=== PATIENT | female | born 1935 | race Caucasian/White ===

== ENCOUNTER 2016-11-15 10:22 | Day surgery (SDC) | payer MEDICARE, OTHER ==
[2016-11-14 09:17] VITALS: BMI 26.3
[~2016-11-15 10:22] MED LIST: LACTATED RINGERS 1,000 ML IV SCH; MIDAZOLAM 2 MG/2 ML VIAL IV PRN
[2016-11-15] MEDS: ONDANSETRON 4 MG/2 ML VIAL IVP ONE ×2 (11:09→16:07)
[2016-11-15] MEDS ORDERED: LIDOCAINE 1% 20 ML VIAL (10MG/ML) FOR IV START INTRADERMA ONE (11:09)
[2016-11-15] MEDS ORDERED: ceFAZolin 1,000 MG/50 ML BAG (PMX) ONE (12:39)
[2016-11-15] MEDS ORDERED: SODIUM CHLORIDE 0.9% 100 ML BAG ONE (12:39)
[2016-11-15] MEDS ORDERED: PROPOFOL 10 MG/ML 20 ML VIAL IV ONE (12:39)
[2016-11-15] MEDS ORDERED: ceFAZolin 1,000 MG VIAL ONE (12:39)
[2016-11-15] MEDS ORDERED: fentaNYL (PF) 50 MCG/ML 2 ML AMP ONE (12:39)
[2016-11-15] MEDS ORDERED: ceFAZolin 1,000 MG in SODIUM CHLORIDE 0.9% 1,000 ML IRRIGATION ONE ×4 (12:43)
[2016-11-15] MEDS: ceFAZolin 2 GM in SODIUM CHLORIDE 0.9% 100 ML IVPB ONE ×2 (12:43→12:54)
[2016-11-15] MEDS: HYDROmorphone 1 MG/ML 1 ML SYRINGE IVP PRN ×4 (13:40→14:15)
[2016-11-15 13:45] VITALS: TEMP 97.8
--- NOTE | 2016-11-15 13:52 | P.OP ---
Date of Procedure: 11/15/16 Procedure(s) Performed: right wrist closed reduction and perc pinning (3 pins) R Distal radius splinted in 15 deg flexion at wrist no assist PREOPERATIVE DIAGNOSES: 1. Right distal radius fracture 2. Severe osteoporosis POSTOPERATIVE DIAGNOSES: 1. Right distal radius fracture 2. Severe osteoporosis PROCEDURES PERFORMED: 1. Right distal radius fracture closed reduction and percutaneous pinning 2. Short arm splint placement ANESTHESIA: pattern fitter: None COMPLICATIONS: None ESTIMATED BLOOD LOSS: Less than 5 mL. DISPOSITION: To post-anesthesia care unit INDICATIONS: Mrs. Lu is an 81-year-old lady who fell a couple weeks ago and sustained a displaced fracture of her distal radius. The fracture was initially reduced with good alignment, however has shifted out of place over the past week. We have discussed leaving this fracture alone and letting it heal with residual deformity which would probably be acceptable in terms of function, but considering the amount of loss of radial inclination I feel that closed reduction percutaneous pinning would the optimal treatment for this situation. She wishes to proceed with surgery. I discussed the steps of the surgery as well as potential risks and complications as being inclusive of, but not limited to: Bleeding, infection, scarring, discomfort, blood vessel and/or nerve damage, need for further surgery, deformity, stiffness, tendon injury, pin site infection, osteomyelitis, loss of limb or life, and other risks. She is aware these risks and wishes to proceed with surgery. The consent form has been signed. PROCEDURE: After appropriate consent was obtained, the patient was taken to the operating room placed in the supine position. Anesthesia was initiated, and after confirmation of adequate anesthesia, the patient was carefully positioned. Care was taken to make sure that all pressure points were adequately padded. Prepping and draping were completed in the usual aseptic fashion using ChloraPrep. Timeout was called, confirming patient identity, side , procedure, and administration of antibiotics. The patient's fracture was reduced while being held by an technical assistant. This was performed under C-arm guidance. Once an acceptable reduction had been obtained , 0.062 inch K wires were deployed from the distal fragment into the proximal fragment under C-arm guidance. 3 such pins were used: one in the radial styloid , one in the sigmoid notch fragment, and the last in the central dorsal rim of the distal radius. All 3 pins had far cortical purchase. Final C-arm images were taken and saved, showing satisfactory realignment of the distal radius fracture. Pins were bent and trimmed. Pin protectors were applied. A nonadherent dressing was applied over the pin sites and a well-padded well molded volar splint with the wrist in approximately 15 of flexion was applied. Patient tolerated the procedure well and taken to recovery room in stable condition. Counts were correct.
--- NOTE | 2016-11-15 13:54 | FL ---
EXAMINATION TYPE: FL guidance operating room DATE OF EXAM: 11/15/2016 1:36 PM HISTORY: Flouroscopy time 54 seconds of fluoroscopy provided. IMPRESSION: 1. Fluoroscopy time.
[2016-11-15] MEDS ORDERED: MEPERIDINE 50 MG/ML SYRINGE IVP ONE (14:24)
[2016-11-15 15:43] VITALS: RESP 18
[2016-11-15 15:52] VITALS: BP 135/76; PULSE 65
== END 2016-11-15 17:06 | disposition home or self-care (01) ==
LOC: OR 10:22
PROVIDERS: ATTEND Orthopaedic Surgery
DX: S52.501A Unspecified fracture of the lower end of right radius, initial encounter for closed fracture (principal); W19.XXXA Unspecified fall, initial encounter; M81.0 Age-related osteoporosis without current pathological fracture; I10 Essential (primary) hypertension; E78.5 Hyperlipidemia, unspecified; Z79.899 Other long term (current) drug therapy
CPT/HCPCS: 25606; C1713; J2175; J2405; J0690 ×2; J3010; J1170; J2704

== ENCOUNTER 2018-07-11 11:44 | Inpatient (IN) | payer MEDICARE, OTHER ==
--- NOTE | 2018-07-11 12:11 | ED ---
General Adult HPI - General Chief complaint: Neuro Symptoms/Deficit Stated complaint: facial droop, slurred speech Time Seen by Provider: 07/11/18 11:45 Source: patient, RN notes reviewed Mode of arrival: wheelchair Limitations: no limitations - History of Present Illness Initial comments: This is a 83-year-old female presents emergency department with a past history of CVA 6 years ago. Patient comes in today because at about 10:30 this morning while she was in the garden she would was having problems speaking and had some facial droop according to the family. Patient's symptoms resolved on the way here and then he started up again and since then her symptoms had completely resolved. Patient denies any numbness or weakness of any extremities. Patient denies any visual disturbance. Patient states currently her speech is normal. Family agrees his speech and facial droop is completely resolved. Patient denies any chest pain palpitations difficulty breathing or shortness of breath. Patient has no recent fever chills or cough. Patient denies abdominal pain patient denies nausea vomiting diarrhea. - Related Data Home Medications Medication Instructions Recorded Confirmed Aspirin [Adult Low Dose Aspirin EC] 81 mg PO DAILY 11/14/16 11/14/16 Glucosam/Niranjan-Msm1/C/New/Bosw 1 each PO DAILY 11/14/16 11/14/16 [Glucosamine-Chondroitin Tablet] Metoprolol Tartrate [Lopressor] 50 mg PO QAM 11/14/16 11/15/16 Multivitamins, Thera [Multivitamin] 1 tab PO DAILY 11/14/16 11/14/16 Simvastatin [Zocor] 40 mg PO HS 11/14/16 11/15/16 Tylenol Tab 600 mg PO DIRECTED PRN 11/14/16 11/14/16 Ibuprofen [Motrin] 600 mg PO Q6HR PRN 11/15/16 11/15/16 Previous Rx's Medication Instructions Recorded Hydrocodone/Acetaminophen [Winslow 1 - 2 each PO Q6HR PRN #60 tab 11/15/16 5-325] Allergies Allergy/AdvReac Type Severity Reaction Status Date / Time No Known Allergies Allergy Verified 07/11/18 11:51 Review of Systems ROS Statement: Those systems with pertinent positive or pertinent negative responses have been documented in the HPI. ROS Other: All systems not noted in ROS Statement are negative. Past Medical History Past Medical History: CVA/TIA, GERD/Reflux, Hypertension Additional Past Medical History / Comment(s): stroke 2015- ok diff getting words out, 10/31/16- fell and broke rt wrist(has cast), varicose veins, anemia, History of Any Multi-Drug Resistant Organisms: None Reported Past Surgical History: Cholecystectomy Additional Past Surgical History / Comment(s): rommel cataracts, Past Anesthesia/Blood Transfusion Reactions: No Reported Reaction Past Psychological History: No Psychological Hx Reported Smoking Status: Never smoker Past Alcohol Use History: None Reported Past Drug Use History: None Reported - Past Family History Brother(s) Family Medical History: Cancer General Exam - General Exam Comments Initial Comments: GENERAL: Patient is well-developed and well-nourished. Patient is nontoxic and well- hydrated and is in no acute distress. ENT: Neck is soft and supple. No significant lymphadenopathy is noted. Oropharynx is clear. Moist mucous membranes. Neck has full range of motion without eliciting any pain EYES: The sclera were anicteric and conjunctiva were pink and moist. Extraocular movements were intact and pupils were equal round and reactive to light. Eyelids were unremarkable. PULMONARY: Unlabored respirations. Good breath sounds bilaterally. No audible rales rhonchi or wheezing was noted. CARDIOVASCULAR: There is a regular rate and rhythm without any murmurs gallops or rubs. Femoral pulses are equal bilaterally ABDOMEN: Soft and nontender with normal bowel sounds. No palpable organomegaly was noted. There is no palpable pulsatile mass. SKIN: Skin is clear with no lesions or rashes and otherwise unremarkable. NEUROLOGIC: Patient is alert and oriented x3. Cranial nerves II through XII are grossly intact. Motor and sensory are also intact. Normal speech, volume and content. Symmetrical smile. MUSCULOSKELETAL: Normal extremities with adequate strength and full range of motion. No lower extremity swelling or edema. No calf tenderness. LYMPHATICS: No significant lymphadenopathy is noted PSYCHIATRIC: Normal psychiatric evaluation. Limitations: no limitations Course Vital Signs 07/11/18 07/11/18 07/11/18 11:48 12:25 13:22 Temperature 98.3 F 97.3 F L Pulse Rate 55 L 51 L 55 L Respiratory 16 20 18 Rate Blood Pressure 145/78 140/71 163/70 O2 Sat by Pulse 100 100 96 Oximetry 07/11/18 07/11/18 13:37 13:52 Temperature 97.3 F L 97.3 F L Pulse Rate 53 L 53 L Respiratory 18 18 Rate Blood Pressure 162/72 174/82 O2 Sat by Pulse 100 100 Oximetry Medical Decision Making - Medical Decision Making I spoke with Dr. Vick and he wanted to give the patient 450 mg of Plavix and aspirin so we did. Patient also had a CTA ordered. Dr. Lafleur agreed at this time no TPA was indicated - Lab Data Result diagrams: 07/11/18 12:00 07/11/18 12:00 Lab Results 07/11/18 07/11/18 07/11/18 Range/Units 12:00 12:00 12:00 WBC 6.8 (3.8-10.6) k/uL RBC 3.77 L (3.80-5.40) m/uL Hgb 10.7 L (11.4-16.0) gm/dL Hct 33.4 L (34.0-46.0) % MCV 88.8 (80.0-100.0) fL MCH 28.4 (25.0-35.0) pg MCHC 32.0 (31.0-37.0) g/dL RDW 13.3 (11.5-15.5) % Plt Count 177 (150-450) k/uL Neutrophils % 72 % Lymphocytes % 15 % Monocytes % 5 % Eosinophils % 5 % Basophils % 1 % Neutrophils # 4.9 (1.3-7.7) k/uL Lymphocytes # 1.0 (1.0-4.8) k/uL Monocytes # 0.4 (0-1.0) k/uL Eosinophils # 0.3 (0-0.7) k/uL Basophils # 0.1 (0-0.2) k/uL PT (9.0-12.0) sec INR (<1.2) APTT (22.0-30.0) sec Sodium 141 (137-145) mmol/L Potassium 5.1 (3.5-5.1) mmol/L Chloride 109 H (98-107) mmol/L Carbon Dioxide 24 (22-30) mmol/L Anion Gap 8 mmol/L BUN 29 H (7-17) mg/dL Creatinine 1.47 H (0.52-1.04) mg/dL Est GFR (CKD-EPI)AfAm 38 (>60 ml/min/1.73 sqM) Est GFR (CKD-EPI)NonAf 33 (>60 ml/min/1.73 sqM) Glucose 96 (74-99) mg/dL POC Glucose (mg/dL) (75-99) mg/dL POC Glu Fire Engine Operator ID Calcium 9.4 (8.4-10.2) mg/dL Total Bilirubin 0.7 (0.2-1.3) mg/dL AST 33 (14-36) U/L ALT 29 (9-52) U/L Alkaline Phosphatase 92 (38-126) U/L Total Creatine Kinase 68 (30-135) U/L CK-MB (CK-2) 1.5 (0.0-2.4) ng/mL CK-MB (CK-2) Rel Index 2.2 Troponin I <0.012 (0.000-0.034) ng/mL Total Protein 7.5 (6.3-8.2) g/dL Albumin 4.0 (3.5-5.0) g/dL 07/11/18 07/11/18 Range/Units 12:00 13:47 WBC (3.8-10.6) k/uL RBC (3.80-5.40) m/uL Hgb (11.4-16.0) gm/dL Hct (34.0-46.0) % MCV (80.0-100.0) fL MCH (25.0-35.0) pg MCHC (31.0-37.0) g/dL RDW (11.5-15.5) % Plt Count (150-450) k/uL Neutrophils % % Lymphocytes % % Monocytes % % Eosinophils % % Basophils % % Neutrophils # (1.3-7.7) k/uL Lymphocytes # (1.0-4.8) k/uL Monocytes # (0-1.0) k/uL Eosinophils # (0-0.7) k/uL Basophils # (0-0.2) k/uL PT 10.0 (9.0-12.0) sec INR 1.0 (<1.2) APTT 25.0 (22.0-30.0) sec Sodium (137-145) mmol/L Potassium (3.5-5.1) mmol/L Chloride (98-107) mmol/L Carbon Dioxide (22-30) mmol/L Anion Gap mmol/L BUN (7-17) mg/dL Creatinine (0.52-1.04) mg/dL Est GFR (CKD-EPI)AfAm (>60 ml/min/1.73 sqM) Est GFR (CKD-EPI)NonAf (>60 ml/min/1.73 sqM) Glucose (74-99) mg/dL POC Glucose (mg/dL) 96 (75-99) mg/dL POC Glu Fire Engine Operator ID Mercedes Meyer Calcium (8.4-10.2) mg/dL Total Bilirubin (0.2-1.3) mg/dL AST (14-36) U/L ALT (9-52) U/L Alkaline Phosphatase (38-126) U/L Total Creatine Kinase (30-135) U/L CK-MB (CK-2) (0.0-2.4) ng/mL CK-MB (CK-2) Rel Index Troponin I (0.000-0.034) ng/mL Total Protein (6.3-8.2) g/dL Albumin (3.5-5.0) g/dL Disposition Clinical Impression: Cerebrovascular accident Disposition: ADMITTED IP TO THIS HOSP Referrals: Dung Shelby MD [Primary Care Provider] - 1-2 days Time of Disposition: 14:06
[2018-07-11 12:16] LABS: Basophils # (A) 0.1 k/uL (0-0.2); Basophils % (A) 1 %; Eosinophils # (A) 0.3 k/uL (0-0.7); Eosinophils % (A) 5 %; HCT 33.4 % (34.0-46.0); HGB 10.7 gm/dL (11.4-16.0); Lymphocytes % (A) 15 %; MCH 28.4 pg (25.0-35.0); MCV 88.8 fL (80.0-100.0); Mean Platelet Volume 8.3; Monocytes # (A) 0.4 k/uL (0-1.0); Monocytes % (A) 5 %; Neutrophils # (A) 4.9 k/uL (1.3-7.7); Neutrophils % (A) 72 %; Platelet Count 177 k/uL (150-450); RBC 3.77 m/uL (3.80-5.40); RDW 13.3 % (11.5-15.5); WBC 6.8 k/uL (3.8-10.6)
[2018-07-11 12:25] LABS: Calcium 9.4 mg/dL (8.4-10.2); Potassium 5.1 mmol/L (3.5-5.1); Total Bilirubin 0.7 mg/dL (0.2-1.3); Total Protein 7.5 g/dL (6.3-8.2)
[2018-07-11 12:38] LABS: Creatine Kinase 68 U/L (30-135)
[2018-07-11 12:51] LABS: Creatine Kinase MB 1.5 ng/mL (0.0-2.4); Troponin I <0.012 ng/mL (0.000-0.034)
--- NOTE | 2018-07-11 13:19 | CT ---
EXAMINATION TYPE: CT brain wo con DATE OF EXAM: 07/11/2018 COMPARISON: None HISTORY: 83-year-old female with Slurred speech TECHNIQUE: Examination was done in axial plane without intravenous contrast. Coronal and sagittal r econstructions performed. CT DLP: 1150 mGycm Automated exposure control for dose reduction was used. FINDINGS: There is no evidence of acute intracranial hemorrhage, acute ischemic changes, mass, mass-effect, or extra-axial fluid collection. There is no effacement of cerebral sulci or basal subarachnoid cister ns. There is no hydrocephalus. There is no midline shift. Myao-white matter distinction is preserv ed. There is mild generalized supratentorial volume loss. Mild patchy periventricular and deep white josh er hypodensity suggests changes of chronic small vessel ischemic disease. There is encephalomalacia posterior left parietal lobe related to prior infarct partially empty sella incidentally noted. Paranasal sinuses and mastoid air cells are well pneumatized. Orbits and globes are intact. IMPRESSION: Remote posterior left parietal lobe infarct. No acute intracranial abnormality seen. Mild age-relate d cerebral atrophy and changes of chronic small vessel ischemic disease.
[2018-07-11 13:53] LABS: Glucose,Whole Blood 96 mg/dL (75-99)
[2018-07-11] MEDS ORDERED: CLOPIDOGREL 75 MG TAB PO STA (13:53)
--- NOTE | 2018-07-11 13:56 | XR ---
EXAMINATION TYPE: XR chest 1V portable DATE OF EXAM: 07/11/2018 Comparison: None Clinical History: 83-year-old female confusion, altered mental status Findings: Left heart margin obscured by adjacent pleural parenchymal disease. Mild diffuse interstitial promine nce. Left basilar opacity. Impression: Moderate left pleural effusion with adjacent atelectasis and/or consolidation.
--- NOTE | 2018-07-11 15:38 | CT ---
EXAMINATION TYPE: CT angio head neck DATE OF EXAM: 07/11/2018 COMPARISON: CT brain same day HISTORY: 83-year-old female with pain, slurred speech TECHNIQUE: Contiguous axial scanning of the head and neck performed with IV Contrast, patient injecte d with 65 mL of Isovue 370. Coronal/sagittal MIP reconstructions performed. 3-D reconstructions gener ated on a dedicated workstation. CT DLP: 180 mGycm Automated exposure control for dose reduction was used. FINDINGS: Head: Mild atherosclerotic calcifications in the left carotid siphon and mild to moderate in the right fall tid siphon. The anterior and posterior circulation are patent without any large vessel occlusion or s ignificant stenosis seen. No aneurysmal change identified. NECK: Conventional arch vessel branching anatomy. Great vessel origins are patent. Vertebral arteries are patent and codominant. The proximal right common carotid artery is tortuous. Moderate atherosclerotic narrowing of the proximal right external carotid artery. However, the caroti d bifurcation and right internal carotid artery remain patent with normal contour. Proximal to mid left common carotid artery is tortuous. Both of the common carotid arteries show retr opharyngeal course. The bifurcation and left internal carotid artery are patent. Interstitial scarring and mosaic attenuation as well as bronchial wall thickening in the visualized u pper lungs. Findings suggest small airways disease. IMPRESSION: 1. HEAD: NO LARGE VESSEL INTRACRANIAL OCCLUSION OR ANEURYSMAL CHANGE SEEN. THERE IS MILD TO MODERATE ATHEROSCLEROTIC NARROWING WITHIN THE RIGHT CAROTID SIPHON. 2. NECK: TORTUOUS PROXIMAL COMMON CAROTID ARTERIES. THE COMMON, INTERNAL, AND VERTEBRAL ARTERIES GERRI IN WIDELY PATENT.
[2018-07-11 15:42] VITALS: BMI 24.7
--- NOTE | 2018-07-11 15:53 | P.CONS ---
History of Present Illness - Reason for Consult Consult date: 07/11/18 Stroke - Chief Complaint Left facial droop - History of Present Illness This is a pleasant and very active 83-year-old female being evaluated by the neurology Department for symptoms of stroke. She has a past history of stroke about 6 years ago with very minimal residual deficits. About 10:30 this morning she was gardening and she started having problems with her speech. Some facial droop on the left was noted by family. Her symptoms resolved. This happened one more time before she came to the [facility] emergency room. Her symptoms again resolved while in the emergency room. The symptoms started again and code stroke was called. She was not deemed a candidate for TPA. At the time of my exam she continues to have residual symptoms of left facial droop that now been present for about 2-1/2 hours. Her speech is return to normal according to the family and her. She denies headache or visual changes. She denies any recent illness. Initial CT of the brain showed remote posterior left parietal lobe infarct. There was no acute intracranial abnormality seen. She has cerebral atrophy and chronic small vessel ischemic changes. A CTA has been performed and we are waiting results of that. At this time my exam she is resting comfortably in bed in no acute distress. There is obviously left-sided facial weakness. Review of Systems All systems: negative Constitutional: Reports as per HPI Past Medical History Past Medical History: CVA/TIA, GERD/Reflux, Hypertension Additional Past Medical History / Comment(s): stroke 2014- ok diff getting words out, 10/31/16- fell and broke rt wrist(has cast), varicose veins, anemia, History of Any Multi-Drug Resistant Organisms: None Reported Past Surgical History: Cholecystectomy Additional Past Surgical History / Comment(s): rommel cataracts, Past Anesthesia/Blood Transfusion Reactions: No Reported Reaction Smoking Status: Never smoker - Past Family History Brother(s) Family Medical History: Cancer Medications and Allergies Home Medications Medication Instructions Recorded Confirmed Type Aspirin [Adult Low Dose Aspirin EC] 81 mg PO DAILY 11/14/16 07/11/18 History Glucosam/Niranjan-Msm1/C/New/Bosw 1 tab PO DAILY 11/14/16 07/11/18 History [Glucosamine-Chondroitin Tablet] Metoprolol Tartrate [Lopressor] 25 mg PO QAM 11/14/16 07/11/18 History Multivitamins, Thera [Multivitamin] 1 tab PO DAILY 11/14/16 07/11/18 History Simvastatin [Zocor] 20 mg PO HS 11/14/16 07/11/18 History Allergies Allergy/AdvReac Type Severity Reaction Status Date / Time No Known Allergies Allergy Verified 07/11/18 14:27 Physical Exam Vitals: Vital Signs Temp Pulse Resp BP Pulse Ox 07/11/18 15:00 97.6 F 52 L 18 165/89 99 07/11/18 13:52 97.3 F L 53 L 18 174/82 100 07/11/18 13:37 97.3 F L 53 L 18 162/72 100 07/11/18 13:22 97.3 F L 55 L 18 163/70 96 07/11/18 12:25 51 L 20 140/71 100 07/11/18 11:48 98.3 F 55 L 16 145/78 100 Intake and Output 07/11/18 07/11/18 07/11/18 06:59 14:59 22:59 Other: Weight 57.606 kg - Constitutional General appearance: average body habitus, cooperative, no acute distress - EENT Eyes: no abnormal pupil, EOMI, PERRLA, no ptosis ENT: hearing grossly normal - Neck Neck: normal ROM, no rigidity - Respiratory Respiratory: negative: prolonged expiration, prolonged inspiration - Cardiovascular Rhythm: regular - Gastrointestinal General gastrointestinal: no distended, no tenderness - Neurologic Patient is alert awake and oriented 3. Speech and language are normal. His left-sided facial weakness. Mild sensory deficit the left side of the face. Tract is 5 minus out of 5 in bilateral upper lower extremities. There is no sensory deficit. No tremors or seizure-like activities are seen. There is no pronator drift. There is no dysmetria or dysdiadochokinesia. Results CBC & Chem 7: 07/11/18 12:00 07/11/18 12:00 Labs: Abnormal Lab Results - Last 24 Hours (Table) 07/11/18 07/11/18 Range/Units 12:00 12:00 RBC 3.77 L (3.80-5.40) m/uL Hgb 10.7 L (11.4-16.0) gm/dL Hct 33.4 L (34.0-46.0) % Chloride 109 H (98-107) mmol/L BUN 29 H (7-17) mg/dL Creatinine 1.47 H (0.52-1.04) mg/dL Assessment and Plan (1) Weakness on left side of face Current Visit: Yes Status: Acute Code(s): R29.810 - FACIAL WEAKNESS SNOMED Code(s): 329879914 (2) History of stroke Current Visit: Yes Status: Chronic Code(s): Z86.73 - PRSNL HX OF TIA (TIA), AND CEREB INFRC W/O RESID DEFICITS SNOMED Code(s): 754329293 (3) Hyperlipidemia Current Visit: Yes Status: Chronic Code(s): E78.5 - HYPERLIPIDEMIA, UNSPECIFIED SNOMED Code(s): 74985722 (4) Hypertension Current Visit: Yes Status: Chronic Code(s): I10 - ESSENTIAL (PRIMARY) HYPERTENSION SNOMED Code(s): 31043416 (5) TIA (transient ischemic attack) Current Visit: Yes Status: Suspected Code(s): G45.9 - TRANSIENT CEREBRAL ISCHEMIC ATTACK, UNSPECIFIED SNOMED Code(s): 040359922 Plan: This patient throughout the day seems to have experience at least 2 episodes of transient cerebral ischemia. It seems now symptoms are consistent with cerebrovascular accident. All symptoms seem to be stemming from right-sided insults. I will order an MRI of the brain. Cardiovascular consult for consideration of transesophageal echocardiogram. Speech therapy, physical and occupational therapy consults have been placed. She was on aspirin daily at home, so we will switch this to Plavix 75 mg and start her on Lipitor 10 mg daily. Continue neurological checks. We are awaiting results of her CTA. We will continue to follow and make recommendations based on the above studies. tI have performed a history and physical on the above patient. I have reviewed the above note, and agree.
[2018-07-11 16:28] LABS: Cholesterol 157 mg/dL (<200); HDL Cholesterol 65 mg/dL (40-60); LDL Cholesterol,Calculated 75 mg/dL (0-99); Triglycerides 86 mg/dL (<150)
[2018-07-11] MEDS ORDERED: ACETAMINOPHEN TAB 500 MG TAB PO PRN (18:08)
[2018-07-11] MEDS ORDERED: ALPRAZolam 0.25 MG TAB PO PRN (18:08)
[2018-07-11] MEDS ORDERED: MELATONIN 3 MG TABLET PO PRN (18:10)
[2018-07-11] MEDS: SODIUM CHLORIDE 0.9% 1,000 ML IV SCH (18:50)
--- NOTE | 2018-07-11 18:54 | HP ---
HISTORY AND PHYSICAL CHIEF COMPLAINTS: Facial droop and slurred speech. HISTORY OF PRESENT ILLNESS: This 83-year-old woman with a past medical history of multiple medical problems including a CVA, TIA, GERD, hypertension, history of stroke in 2015, history of cholecystectomy being followed by Dr. Shelby in the outpatient setting. The patient was noted to have left-sided facial droop and as well as slurring of speech. The patient's symptoms probably resolved on the way to the ER, but subsequently patient had recurrence of symptoms in the ER. Patient CODE STROKE was called and stroke team was consulted and high-dose Plavix was administered. The NAH score was only 2-3 per ER physician and the patient admitted for further evaluation and treatment. The CTA did not show any acute abnormality either. Currently the patient is slightly dysarthric, otherwise conscious, coherent and cooperate with the exam. There is no history of fever, rigors. No headache, loss of consciousness, seizures at this time. PAST MEDICAL HISTORY: History of CVA, TIA, GERD, hypertension, history of stroke. MEDICATIONS: Prior to admission include: 1. Zocor 20 mg q.h.s. 2. Multivitamins one p.o. daily. 3. Lopressor 25 mg q.a.m. 4. Glucosamine 1 tablet p.o. daily. 5. Aspirin 81 mg p.o. daily. ALLERGIES: Allergies are none known. FAMILY HISTORY: History of cancer in the family. SOCIAL HISTORY: No history of smoking. No history of alcohol intake. REVIEW OF SYSTEMS: ENT mentioned earlier. Cardiovascular: No angina or palpitations. RESPIRATORY : As mentioned earlier. GI: No nausea or vomiting. no dysuria or hematuria. Nervous system: No numbness or weakness. Allergy/Immunology: No asthma or hayfever. Musculoskeletal: As mentioned earlier. Hematology/Oncology: No history of anemia. Endocrine: No history of diabetes mellitus or hypothyroidism. Constitutional: As mentioned earlier. Dermatology: Negative. Rheumatology: Negative. Psychiatry: As mentioned earlier. Neurological: As mentioned earlier. PHYSICAL EXAMINATION: GENERAL: Alert and oriented times 3. VITAL SIGNS: Pulse 65, blood pressure 144/60, respiration 16, temperature 96.3, pulse ox 99 percent on 3 L. HEENT: Conjunctivae normal. Oral mucosa moist. Neck is no jugular venous distention. No carotid bruit. No lymph node enlargement. Cardiovascular S1-S2. No S3, no S4. RESPIRATORY: Breath sounds diminished in the bases. A few scattered rhonchi. No crackles. ABDOMEN: Soft, nontender. No mass palpable. No hepatosplenomegaly. LEGS: No edema and no swelling. NERVOUS SYSTEM: Higher functions as mentioned earlier. Cranial nerves 2nd to moves all 4 limbs in all directions. No nystagmus. No diplopia. Left-sided upper motor confusion also present otherwise legs no weakness. No sensory abnormalities. No signs of cerebellar dysfunction. Gait is normal. Skin: No ulcer, rash or bleeding. Joints: No active deforming arthropathy. Lymph nodes: No lymphadenopathy of the neck, axilla and groin. LABS: WBC 6.2, hemoglobin 10.7, creatinine is 1.47. ASSESSMENT: 1. Acute stroke involving the right hemisphere causing left-sided facial paralysis. 2. Increased creatinine with chronic kidney disease. 3. Anemia. 4. History of cerebrovascular accident/transient ischemic attack. 5. Gastroesophageal reflux disease. 6. Hypertension. 7. History of varicose veins. 8. History of anemia. 9. History of cholecystectomy. 10.History of bilateral cataracts. 11.FULL CODE. RECOMMENDATIONS AND DISCUSSION: In this 83-year-old woman who presented with multiple complex medical issues. We will monitor the patient closely. Continue the current medications, management and symptomatic treatment. We will initiate antiplatelet agents and we will also include antihyperemic agents and monitor blood pressure closely. hypertension. DVT prophylaxis. Closely follow with Neurology. Neurovascular workup and possible BRETT by Cardiology. Guarded prognosis because of multiple complex medical issues and further recommendations to follow. Copy of dictation forwarded to Dr. Shelby who is the primary physician. MMJOONL / IJN: [id number] / RUMA
[2018-07-11] MEDS: ATORVASTATIN 40 MG TAB PO SCH (19:59)
[2018-07-11] MEDS: PANTOPRAZOLE 40 MG/10 ML VIAL IVP SCH (19:59)
[2018-07-11] MEDS: HEPARIN SODIUM,PORCINE 5,000 UNIT/ML 1 ML VIAL SQ SCH (19:59)
[2018-07-11] MEDS ORDERED: ATORVASTATIN 10 MG TAB PO SCH (21:00)
[2018-07-11] MEDS ORDERED: MELATONIN 3 MG TABLET PO SCH (21:00)
[2018-07-11 21:42] LABS: Appearance,Urine Clear (Clear); Bilirubin,Urine Negative (Negative); Blood,Urine Negative (Negative); Color,Urine Yellow; Glucose,Urine (UA) Negative (Negative); Ketones,Urine Negative (Negative); Leukocyte Esterase,Urine Negative (Negative); Nitrite,Urine Negative (Negative); Protein,Urine Negative (Negative); Specific Gravity,Urine 1.023 (1.001-1.035); Urobilinogen,Urine <2.0 mg/dL (<2.0)
[2018-07-12 06:24] LABS: Basophils % (A) 1 %; Eosinophils # (A) 0.3 k/uL (0-0.7); Eosinophils % (A) 5 %; HCT 29.1 % (34.0-46.0); HGB 9.3 gm/dL (11.4-16.0); Lymphocytes # (A) 1.2 k/uL (1.0-4.8); Lymphocytes % (A) 23 %; MCH 28.8 pg (25.0-35.0); MCHC 32.1 g/dL (31.0-37.0); Mean Platelet Volume 7.8; Monocytes # (A) 0.4 k/uL (0-1.0); Monocytes % (A) 7 %; Neutrophils # (A) 3.2 k/uL (1.3-7.7); Neutrophils % (A) 62 %; Platelet Count 140 k/uL (150-450); RBC 3.23 m/uL (3.80-5.40); RDW 13.2 % (11.5-15.5); WBC 5.2 k/uL (3.8-10.6)
[2018-07-12 06:34] LABS: Calcium 8.7 mg/dL (8.4-10.2); Potassium 4.4 mmol/L (3.5-5.1)
[2018-07-12] MEDS: HEPARIN SODIUM,PORCINE 5,000 UNIT/ML 1 ML VIAL SQ SCH ×2 (07:56→21:30)
[2018-07-12] MEDS: MULTIVITAMINS, THERA 1 EACH TAB PO SCH (07:56)
[2018-07-12] MEDS: CLOPIDOGREL 75 MG TAB PO SCH (07:56)
[2018-07-12] MEDS: ASPIRIN 81 MG PO SCH (07:56)
[2018-07-12] MEDS: PANTOPRAZOLE 40 MG/10 ML VIAL IVP SCH (07:56)
--- NOTE | 2018-07-12 11:38 | P.CRDCN ---
History of Present Illness Consult date: 07/12/18 Requesting physician: Jaye Callaway Reason for Consult (text): Left-sided weakness, slurred speech Consult reason: other Chief complaint: Left-sided weakness, slurred speech, stroke symptoms History of present illness: This is a 83-year-old white female patient with past medical history of stroke 6 years ago, with no residual, presented to the emergency department on 2017 with symptoms of slurred speech, left facial droop, left-sided weakness. Patient was on the phone with her son yesterday, when her son noted her speech slurred. 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 Denied any visual symptoms, or numbness. No lightheadedness, no palpitations, no chest pain. No fever or chills. Brain CT showed remote posterior left parietal lobe infarct, but no acute intracranial abnormality, there was mild age-related cerebral atrophy and changes of chronic small vessel ischemic disease. Angiography CT of head and neck was negative for any large vessel intracranial occlusion or aneurysmal change. There was mild to moderate atherosclerotic narrowing within the right carotid siphon. Tortuous proximal common carotid arteries. The common, internal, and vertebral arteries were widely patent. EKG showed sinus bradycardia with a rate of 49 BPM. Chest x- ray showed moderate left pleural effusion with adjacent atelectasis. Lab work showed the BBC of 6.8, hemoglobin of 10.7, BUN of 29, creatinine of 1.47, troponin was negative 1, lipid profile was relatively unremarkable. She denies history of atrial fibrillation. Her symptoms of left-sided weakness and left facial droop, and slight slurring of speech persists. Neurology is following. We're asked to see the patient in regards to possible BRETT. Review of Systems All systems: negative Constitutional: Denies chills, Denies fever Eyes: denies blurred vision, denies pain Ears, nose, mouth and throat: Denies headache, Denies sore throat Cardiovascular: Denies chest pain, Denies shortness of breath Respiratory: Denies cough Gastrointestinal: Denies abdominal pain, Denies diarrhea, Denies nausea, Denies vomiting Genitourinary: Denies dysuria, Denies hematuria Musculoskeletal: Denies myalgias Integumentary: Denies pruritus, Denies rash Neurological: Reports change in speech, Reports motor disturbance, Denies numbness, Denies weakness Psychiatric: Denies anxiety, Denies depression Endocrine: Denies fatigue, Denies weight change Past Medical History Past Medical History: CVA/TIA, GERD/Reflux, Hypertension Additional Past Medical History / Comment(s): stroke 2015- ok diff getting words out, 10/31/16- fell and broke rt wrist(has cast), varicose veins, anemia, History of Any Multi-Drug Resistant Organisms: None Reported Past Surgical History: Cholecystectomy Additional Past Surgical History / Comment(s): rommel cataracts, Past Anesthesia/Blood Transfusion Reactions: No Reported Reaction Smoking Status: Never smoker - Past Family History Brother(s) Family Medical History: Cancer Medications and Allergies Home Medications Medication Instructions Recorded Confirmed Type Aspirin [Adult Low Dose Aspirin EC] 81 mg PO DAILY 11/14/16 07/11/18 History Glucosam/Niranjan-Msm1/C/New/Bosw 1 tab PO DAILY 11/14/16 07/11/18 History [Glucosamine-Chondroitin Tablet] Metoprolol Tartrate [Lopressor] 25 mg PO QAM 11/14/16 07/11/18 History Multivitamins, Thera [Multivitamin] 1 tab PO DAILY 11/14/16 07/11/18 History Simvastatin [Zocor] 20 mg PO HS 11/14/16 07/11/18 History Allergies Allergy/AdvReac Type Severity Reaction Status Date / Time No Known Allergies Allergy Verified 07/11/18 14:27 Physical Exam Vitals: Vital Signs Temp Pulse Pulse Resp BP BP Pulse Ox 07/12/18 07:58 97.7 F 76 16 131/60 97 07/12/18 04:00 97.8 F 75 16 125/59 96 07/11/18 23:22 63 16 07/11/18 23:20 97.0 F L 63 16 123/68 97 07/11/18 20:00 96.8 F L 60 19 129/60 96 07/11/18 17:07 65 16 144/68 97 07/11/18 15:20 96.3 F L 57 L 16 179/77 95 07/11/18 15:00 97.6 F 52 L 18 165/89 99 07/11/18 13:52 97.3 F L 53 L 18 174/82 100 07/11/18 13:37 97.3 F L 53 L 18 162/72 100 07/11/18 13:22 97.3 F L 55 L 18 163/70 96 07/11/18 12:25 51 L 20 140/71 100 07/11/18 11:48 98.3 F 55 L 16 145/78 100 Intake and Output 07/11/18 07/12/18 07/12/18 22:59 06:59 14:59 Intake Total 200 500 Output Total 200 Balance 0 500 Intake: IV 500 Sodium Chloride 0.9% 1, 500 000 ml @ 50 mls/hr IV . Q20H [facility] Rx#:[id number] Oral 200 Output: Urine 200 Other: Voiding Method Toilet Toilet Toilet Bedside Commode # Voids 1 1 Weight 59.3 kg GENERAL EXAM: Alert, pleasant 83-year-old white female, comfortable in no apparent distress. Patient has obvious left facial droop and slurred speech HEAD: Normocephalic/atraumatic. EYES: Normal reaction of pupils, equal size. Conjunctiva pink, sclera white. NOSE: Clear with pink turbinates. THROAT: No erythema or exudates. NECK: No masses, no JVD, no thyroid enlargement, no adenopathy. CHEST: No chest wall deformity. Symmetrical expansion. LUNGS: Equal air entry with no crackles, wheeze, rhonchi or dullness. CVS: Regular rate and rhythm, normal S1 and S2, no gallops, no murmurs, no rubs ABDOMEN: Soft, nontender. No hepatosplenomegaly, normal bowel sounds, no guarding or rigidity. EXTREMITIES: No clubbing, no edema, no cyanosis, 2+ pulses and upper and lower extremities. 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 Left facial droop, slurred speech, and left sided weakness. PSYCHIATRIC: Alert and oriented -3. Appropriate affect. Intact judgment and insight. Results 07/12/18 06:02 07/12/18 06:02 Cardiac Enzymes 07/11/18 07/11/18 Range/Units 12:00 12:00 AST 33 (14-36) U/L CK-MB (CK-2) 1.5 (0.0-2.4) ng/mL Troponin I <0.012 (0.000-0.034) ng/mL Coagulation 07/11/18 Range/Units 12:00 PT 10.0 (9.0-12.0) sec APTT 25.0 (22.0-30.0) sec Lipids 07/11/18 07/12/18 Range/Units 12:00 06:02 Triglycerides 86 96 (<150) mg/dL Cholesterol 157 122 (<200) mg/dL HDL Cholesterol 65 H 55 (40-60) mg/dL CBC 07/11/18 07/12/18 Range/Units 12:00 06:02 WBC 6.8 5.2 (3.8-10.6) k/uL RBC 3.77 L 3.23 L (3.80-5.40) m/uL Hgb 10.7 L 9.3 L (11.4-16.0) gm/dL Hct 33.4 L 29.1 L (34.0-46.0) % Plt Count 177 140 L (150-450) k/uL Comprehensive Metabolic Panel 07/11/18 07/12/18 Range/Units 12: 06:02 Sodium 141 140 (137-145) mmol/L Potassium 5.1 4.4 (3.5-5.1) mmol/L Chloride 109 H 111 H (98-107) mmol/L Carbon Dioxide 24 22 (22-30) mmol/L BUN 29 H 30 H (7-17) mg/dL Creatinine 1.47 H 1.43 H (0.52-1.04) mg/dL Glucose 96 84 (74-99) mg/dL Calcium 9.4 8.7 (8.4-10.2) mg/dL AST 33 (14-36) U/L ALT 29 (9-52) U/L Alkaline Phosphatase 92 (38-126) U/L Total Protein 7.5 (6.3-8.2) g/dL Albumin 4.0 (3.5-5.0) g/dL Current Medications Generic Name Dose Route Start Last Admin Trade Name Freq PRN Reason Stop Dose Admin Acetaminophen 500 mg 07/11/18 18:08 Tylenol Tab PO Q6HR PRN Fever and/ or MILD Pain Alprazolam 0.25 mg 07/11/18 18:08 Xanax PO TID PRN Anxiety Aspirin 81 mg 07/12/18 09:00 07/12/18 07:56 Aspirin PO 81 mg DAILY BRIAN Administration Atorvastatin Calcium 40 mg 07/11/18 21:00 07/11/18 19:59 Lipitor PO 40 mg HS BRIAN Administration Clopidogrel Bisulfate 75 mg 07/12/18 09:00 07/12/18 07:56 Plavix PO 75 mg DAILY BRIAN Administration Heparin Sodium (Porcine) 5,000 unit 07/11/18 21:00 07/12/18 07:56 Heparin SQ 5,000 unit Q12HR BRIAN Administration Sodium Chloride 1,000 mls @ 50 mls/hr 07/11/18 18:15 07/11/18 18:50 Saline 0.9% IV 50 mls/hr .Q20H BRIAN Administration Melatonin 3 mg 07/11/18 18:10 Melatonin PO HS PRN Insomnia Multivitamins 1 each 07/12/18 12:00 07/12/18 07:56 Theragran PO 1 each DAILY@1200 BRIAN Administration Pantoprazole Sodium 40 mg 07/11/18 18:15 07/12/18 07:56 Protonix IVP 40 mg DAILY BRIAN Administration Intake and Output 07/11/18 07/12/18 07/12/18 22:59 06:59 14:59 Intake Total 200 500 Output Total 200 Balance 0 500 Intake: IV 500 Sodium Chloride 0.9% 1, 500 000 ml @ 50 mls/hr IV . Q20H [facility] Rx#:[id number] Oral 200 Output: Urine 200 Other: Voiding Method Toilet Toilet Toilet Bedside Commode # Voids 1 1 Weight 59.3 kg 07/12/18 06:02 07/12/18 06:02 - EKG Interpretation EKG: interpreted by YOLANDA, sinus rhythm EKG shows: sinus rhythm Assessment and Plan Plan: Assessment: #1. Acute stroke with left-sided facial paralysis, left-sided weakness and slurring of the speech #2. Chronic kidney disease #3. History of prior cerebrovascular accident 6 years ago with no residual #4. Hypertension #5. GERD Plan: We'll obtain 2-D echocardiogram, we'll schedule the patient for transesophageal echocardiogram to rule out PFO for Friday, on 07/14/2018, nothing by mouth after midnight on Friday night. Patient will need 30 day shelter monitor after discharge to rule out any paroxysmal atrial fibrillation. Continue aspirin, continue Plavix and Lipitor. We'll continue to follow I performed a history & physical examination of the patient and discussed their management with my nurse practitioner, Ashwini Kinney. I reviewed the nurse practitioner's note and agree with the documented findings and plan of care. Lung sounds are clear, sounds are normal S1 and S2, no murmur. The findings and the impression was discussed with the patient. I attest to the documentation by the nurse practitioner. Time with Patient: Greater than 30
--- NOTE | 2018-07-12 12:50 | P.PN ---
Subjective Progress Note Date: 07/12/18 Principal diagnosis: Stroke This is a pleasant and active 83-year-old female continuing to be evaluated by the neurology service for symptoms of stroke. She does have a history of stroke about 6 years ago. She has minimal residual deficits from that stroke. Recall she was out gardening she started to develop problems with her speech and left facial droop. She had at least 3 of these episodes the last of which left her with persistent left facial droop. Initial CT of the brain showed remote posterior left parietal lobe infarct. No acute intracranial abnormalities were identified. She a showed no flow-limiting stenosis. And no significant intracranial vascular abnormalities. Time of my exam she is up and walking in no acute distress. Objective - Vital Signs Vital signs: Vital Signs Temp 97.7 F 07/12/18 12:03 Pulse 76 07/12/18 12:03 Resp 16 07/12/18 12:03 BP 149/66 07/12/18 12:03 Pulse Ox 96 07/12/18 12:03 Intake & Output 07/11/18 07/12/18 07/12/18 18:59 06:59 18:59 Intake Total 200 500 300 Output Total 200 Balance 200 300 300 Weight 57.606 kg 59.3 kg Intake: IV 500 Sodium Chloride 0.9% 1, 500 000 ml @ 50 mls/hr IV . Q20H [facility] Rx#:[id number] Oral 200 300 Output: Urine 200 Other: Voiding Method Toilet Toilet # Voids 1 1 - Constitutional General appearance: Present: average body habitus, cooperative, no acute distress - EENT Eyes: Present: EOMI, PERRLA. Absent: abnormal pupil, ptosis ENT: Present: hearing grossly normal - Neck Neck: Present: normal ROM. Absent: rigidity - Respiratory Respiratory: negative: prolonged expiration, prolonged inspiration - Cardiovascular Rhythm: regular - Gastrointestinal General gastrointestinal: Absent: distended, tenderness - Neurologic Neurologic Comment(s): She is alert awake and oriented 3. Speech and language are normal. She has left sided facial weakness especially mouth droop. Mild sensory deficit the left side of the face. Strength is 5 minus out of 5 in bilateral upper lower extremities. There is no sensory deficit. No tremors or seizure-like activities are seen. - Labs CBC & Chem 7: 07/12/18 06:02 07/12/18 06:02 Labs: Abnormal Lab Results - Last 24 Hours (Table) 07/11/18 07/12/18 07/12/18 Range/Units 12:00 06:02 06:02 RBC 3.23 L (3.80-5.40) m/uL Hgb 9.3 L (11.4-16.0) gm/dL Hct 29.1 L (34.0-46.0) % Plt Count 140 L (150-450) k/uL Chloride 111 H (98-107) mmol/L BUN 30 H (7-17) mg/dL Creatinine 1.43 H (0.52-1.04) mg/dL HDL Cholesterol 65 H (40-60) mg/dL Assessment and Plan (1) Weakness on left side of face Current Visit: Yes Status: Acute Code(s): R29.810 - FACIAL WEAKNESS SNOMED Code(s): 811865876 (2) History of stroke Current Visit: Yes Status: Chronic Code(s): Z86.73 - PRSNL HX OF TIA (TIA), AND CEREB INFRC W/O RESID DEFICITS SNOMED Code(s): 839693133 (3) Hyperlipidemia Current Visit: Yes Status: Chronic Code(s): E78.5 - HYPERLIPIDEMIA, UNSPECIFIED SNOMED Code(s): 58702116 (4) Hypertension Current Visit: Yes Status: Chronic Code(s): I10 - ESSENTIAL (PRIMARY) HYPERTENSION SNOMED Code(s): 31706127 (5) TIA (transient ischemic attack) Current Visit: Yes Status: Suspected Code(s): G45.9 - TRANSIENT CEREBRAL ISCHEMIC ATTACK, UNSPECIFIED SNOMED Code(s): 179173261 Plan: This patient throughout the day seems to have experience at least 2 episodes of transient cerebral ischemia. It seems now symptoms are consistent with cerebrovascular accident. All symptoms seem to be stemming from right-sided insults. I did order an MRI of the brain. This will be delayed somewhat so I will order an updated CT of the brain. Cardiovascular consult for consideration of transesophageal echocardiogram. Speech therapy, physical and occupational therapy consults have been placed. She was on aspirin daily at home, so we will switch this to Plavix 75 mg and start her on Lipitor 10 mg daily. Continue neurological checks. We will continue to follow and make recommendations based on the above studies. tI have performed a history and physical on the above patient. I have reviewed the above note, and agree.
--- NOTE | 2018-07-12 14:29 | CT ---
EXAMINATION TYPE: CT brain wo con DATE OF EXAM: 07/12/2018 COMPARISON: 07/11/2018 HISTORY: Left sided facial droop CT DLP: 1108.4 mGycm Automated exposure control for dose reduction was used. FINDINGS: There is hypodensity in the left posterior temporal lobe consistent with old cortical infarct. There is no mass effect nor midline shift. There is white matter hypodensity. There is no evidence of intra cranial hemorrhage. Calvarium is intact. IMPRESSION: OLD LEFT TEMPORAL LOBE INFARCT. CHRONIC SMALL VESSEL ISCHEMIA. NO CHANGE.
[2018-07-12] MEDS: SODIUM CHLORIDE 0.9% 1,000 ML IV SCH (16:03)
--- NOTE | 2018-07-12 18:01 | PN ---
PROGRESS NOTE DATE OF SERVICE: 07/12/2018 INTERVAL HISTORY: This 83-year-old woman who was admitted with acute stroke involving the right hemisphere causing left-sided facial droop and slurring of speech is being closely monitored. Patient is not a candidate for tPA. Neurology is following the patient closely. Cardiology is considering BRETT. MRI of the brain has been noted. No chest pain. No palpitations. No fever. PHYSICAL EXAM: GENERAL: Alert and oriented times three. VITAL SIGNS: Pulse is 76. Blood pressure 149/60, respirations 16, temperature 97.7, pulse ox 98% on room air. HEENT: Conjunctivae normal. Oral mucosa moist. NECK is no jugular venous distention. No carotid bruit. No lymph node enlargement. CARDIOVASCULAR system: S1, S2 muffled. RESPIRATORY: Breath sounds diminished in the bases. No rhonchi. No crackles. ABDOMEN: Soft, nontender. LEGS: No edema. No swelling. CENTRAL NERVOUS SYSTEM: Left-sided facial droop. LABS: WBC 5.9, hemoglobin 9.2, sodium 140, potassium 4.2, creatinine is 1.43. ASSESSMENT: 1. Acute stroke involving the right hemisphere causing left-sided facial paralysis. 2. Increased creatinine with chronic kidney disease. 3. Anemia of anemia of chronic disease. 4. History of cerebrovascular accident, transient ischemic attack. 5. Gastroesophageal reflux disease. 6. Hypertension. 7. History of varicose veins. 8. History of cholecystectomy. 9. History of bilateral cataracts. 10.FULL CODE. RECOMMENDATIONS AND DISCUSSION: Recommend to continue current medications and symptomatic treatment. Otherwise, at this time, we will monitor the patient closely. Closely follow with Neurology. Guarded prognosis. Possible MRI and further evaluation. BRETT per Cardiology. MMODL / IJN: [id number] /
--- NOTE | 2018-07-12 18:52 | CONS ---
CONSULTATION This 83-year-old pleasant female. She has been admitted to [facility] with history of slurred speech when she was talking to her son in [place]. She was brought into the emergency room and patient had a stroke workup. The patient also had some left arm weakness with complete recovery. Patient has a history of CVA in the past and also she has history of hypertension controlled with medication. The patient is left handed and stroke workup showed CTA of the carotid shows a moderate plaque formation noted but both internal carotid arteries are tortuous and patent. The patient had a CT scan of the brain, no acute intracranial hemorrhage was seen. PAST MEDICAL HISTORY: Includes history of CVA, history of hypertension, history of stroke in the past. PHYSICAL EXAMINATION: Patient was seen in her room. Patient lying comfortably in bed. NECK: Supple. No bruit appreciated. CHEST: Clear to auscultation. ABDOMEN: Soft. Brachial, radial and femoral pulses are present. Her speech is improving. The patient's motor function upper and lower extremities are normal. The patient is scheduled to have a BRETT and Cardiology consult. At this point, the patient does not have any critical or high-grade stenosis noted of the both carotid arteries. We will follow with you and in the meantime, the patient is on antiplatelet therapy. MMODL / IJN: [id number] /
[2018-07-12] MEDS: ATORVASTATIN 40 MG TAB PO SCH (22:02)
[2018-07-13 06:34] LABS: Basophils % (A) 1 %; Eosinophils # (A) 0.3 k/uL (0-0.7); Eosinophils % (A) 5 %; HCT 28.9 % (34.0-46.0); HGB 9.5 gm/dL (11.4-16.0); Lymphocytes % (A) 19 %; MCH 29.4 pg (25.0-35.0); MCHC 32.8 g/dL (31.0-37.0); MCV 89.7 fL (80.0-100.0); Mean Platelet Volume 7.7; Monocytes # (A) 0.3 k/uL (0-1.0); Monocytes % (A) 7 %; Neutrophils # (A) 3.3 k/uL (1.3-7.7); Neutrophils % (A) 66 %; Platelet Count 142 k/uL (150-450); RBC 3.22 m/uL (3.80-5.40); RDW 13.2 % (11.5-15.5); WBC 5.1 k/uL (3.8-10.6)
[2018-07-13 06:45] LABS: Calcium 9.1 mg/dL (8.4-10.2); Potassium 4.9 mmol/L (3.5-5.1)
[2018-07-13] MEDS: ASPIRIN 81 MG PO SCH (07:42)
[2018-07-13] MEDS: CLOPIDOGREL 75 MG TAB PO SCH (07:43)
[2018-07-13] MEDS: HEPARIN SODIUM,PORCINE 5,000 UNIT/ML 1 ML VIAL SQ SCH ×2 (07:44→22:36)
[2018-07-13] MEDS: PANTOPRAZOLE 40 MG/10 ML VIAL IVP SCH (07:44)
--- NOTE | 2018-07-13 11:59 | P.PN ---
Subjective Progress Note Date: 07/13/18 Principal diagnosis: Stroke This is a pleasant and active 83-year-old female continuing to be evaluated by the neurology service for symptoms of stroke. She does have a history of stroke about 6 years ago. She has minimal residual deficits from that stroke. Recall she was out gardening she started to develop problems with her speech and left facial droop. She had at least 3 of these episodes the last of which left her with persistent left facial droop. Initial CT of the brain showed remote posterior left parietal lobe infarct. Repeat CT of the brain showed no acute intracranial abnormalities were identified. CTA showed no flow-limiting stenosis. And no significant intracranial vascular abnormalities. At the Time of my exam she is resting comfortably in bed in no acute distress. She was having some difficulty with possible aspiration of liquids. I gave her some thickened liquid and this has resolved. She thinks this may predate her current symptoms. But a bedside swallowing study has been ordered. Objective - Vital Signs Vital signs: Vital Signs Temp 97.6 F 07/13/18 07:55 Pulse 77 07/13/18 07:55 Resp 18 07/13/18 07:55 BP 156/83 07/13/18 07:55 Pulse Ox 98 07/13/18 07:55 Intake & Output 07/12/18 07/13/18 07/13/18 18:59 06:59 18:59 Intake Total 500 Output Total 200 Balance 500 -200 Weight 59.5 kg Intake: Oral 500 Output: Urine 200 Other: Voiding Method Toilet Toilet Toilet # Voids 1 1 - Constitutional General appearance: Present: cooperative, no acute distress - EENT Eyes: Present: EOMI, PERRLA. Absent: abnormal pupil, ptosis ENT: Present: hearing grossly normal - Neck Neck: Present: normal ROM. Absent: rigidity - Respiratory Respiratory: negative: prolonged expiration, prolonged inspiration - Cardiovascular Rhythm: regular - Gastrointestinal General gastrointestinal: Absent: distended - Neurologic Neurologic Comment(s): She is alert awake and oriented 3. Language is normal. Speech is mildly dysarthric from her left mouth droop. She continues to have a mild sensory deficit of left side of the face. Strength is 5 minus out of 5 in bilateral upper lower extremities. There is no sensory deficit extremities. Tremors or seizure-like activities are seen. - Labs CBC & Chem 7: 07/13/18 06:07 07/13/18 06:07 Labs: Abnormal Lab Results - Last 24 Hours (Table) 07/13/18 07/13/18 Range/Units 06:07 06:07 RBC 3.22 L (3.80-5.40) m/uL Hgb 9.5 L (11.4-16.0) gm/dL Hct 28.9 L (34.0-46.0) % Plt Count 142 L (150-450) k/uL Chloride 112 H (98-107) mmol/L BUN 23 H (7-17) mg/dL Creatinine 1.38 H (0.52-1.04) mg/dL Assessment and Plan (1) Weakness on left side of face Current Visit: Yes Status: Acute Code(s): R29.810 - FACIAL WEAKNESS SNOMED Code(s): 914703749 (2) History of stroke Current Visit: Yes Status: Chronic Code(s): Z86.73 - PRSNL HX OF TIA (TIA), AND CEREB INFRC W/O RESID DEFICITS SNOMED Code(s): 643007128 (3) Hyperlipidemia Current Visit: Yes Status: Chronic Code(s): E78.5 - HYPERLIPIDEMIA, UNSPECIFIED SNOMED Code(s): 00966857 (4) Hypertension Current Visit: Yes Status: Chronic Code(s): I10 - ESSENTIAL (PRIMARY) HYPERTENSION SNOMED Code(s): 74613386 (5) TIA (transient ischemic attack) Current Visit: Yes Status: Suspected Code(s): G45.9 - TRANSIENT CEREBRAL ISCHEMIC ATTACK, UNSPECIFIED SNOMED Code(s): 908125728 (6) Dysphagia Current Visit: Yes Status: Suspected Code(s): R13.10 - DYSPHAGIA, UNSPECIFIED SNOMED Code(s): 04268416 Plan: This patient experience at least 2 episodes of transient cerebral ischemia. It seems now symptoms are consistent with cerebrovascular accident. All symptoms seem to be stemming from right-sided insults. Repeat CT of the brain showed no acute intracranial abnormalities. She is scheduled for an MRI of the brain. Although her symptom of dysphagia is not new, I will order a swallowing study as she reports aspiration with full liquids. She will be undergoing transesophageal echocardiogram to rule out intracardiac thrombus. Speech therapy, physical and occupational therapy consults have been placed. She we' ll continue Plavix 75 mg and Lipitor daily. Continue neurological checks. We will continue to follow and make recommendations based on the above studies. tI have performed a history and physical on the above patient. I have reviewed the above note, and agree.
[2018-07-13] MEDS: MULTIVITAMINS, THERA 1 EACH TAB PO SCH (12:05)
[2018-07-13] MEDS: SODIUM CHLORIDE 0.9% 1,000 ML IV SCH (12:06)
--- NOTE | 2018-07-13 13:37 | P.PN ---
Subjective Progress Note Date: 07/13/18 Principal diagnosis: Left-sided weakness, slurred speech, stroke symptoms This is a 83-year-old white female patient with past medical history of stroke 6 years ago, with no residual, presented to the emergency department on 2017 with symptoms of slurred speech, left facial droop, left-sided weakness. Patient was on the phone with her son yesterday, when her son noted her speech slurred. Patient also noted development of left facial droop, and weakness of her left tubular stock glass bulb machine former. Denied any visual symptoms, or numbness. No lightheadedness, no palpitations, no chest pain. No fever or chills. Brain CT showed remote posterior left parietal lobe infarct, but no acute intracranial abnormality, there was mild age-related cerebral atrophy and changes of chronic small vessel ischemic disease. Angiography CT of head and neck was negative for any large vessel intracranial occlusion or aneurysmal change. There was mild to moderate atherosclerotic narrowing within the right carotid siphon. Tortuous proximal common carotid arteries. The common, internal, and vertebral arteries were widely patent. EKG showed sinus bradycardia with a rate of 49 BPM. Chest x- ray showed moderate left pleural effusion with adjacent atelectasis. Lab work showed the BBC of 6.8, hemoglobin of 10.7, BUN of 29, creatinine of 1.47, troponin was negative 1, lipid profile was relatively unremarkable. She denies history of atrial fibrillation. Her symptoms of left-sided weakness and left facial droop, and slight slurring of speech persists. Neurology is following. We're asked to see the patient in regards to possible BRETT. On 07/13/2018 patient seen in follow-up on selective care unit. There has been an improvement with slurring of the speech, and the left-sided tubular stock glass bulb machine former is stronger on today's exam, patient is awake and alert, denies any acute distress, denies any chest pain or shortness of breath. Denies any visual symptoms or numbness. No lightheadedness or palpitations. Room air pulse ox is 98%, vital signs are stable. Repeat brain CT from 07/12/2018 showed old left temporal lobe infarct, chronic small vessel ischemia, no change. Patient had echocardiogram yesterday, eating the results, patient is scheduled for BRETT tomorrow, on 2017 and she will by mouth after midnight. Objective - Vital Signs Vital signs: Vital Signs Temp 97.6 F 07/13/18 07:55 Pulse 77 07/13/18 07:55 Resp 18 07/13/18 07:55 BP 156/83 07/13/18 07:55 Pulse Ox 98 07/13/18 07:55 Intake & Output 07/12/18 07/13/18 07/13/18 18:59 06:59 18:59 Intake Total 500 220 Output Total 200 Balance 500 -200 220 Weight 59.5 kg Intake: Oral 500 220 Output: Urine 200 Other: Voiding Method Toilet Toilet Toilet # Voids 1 1 - Exam GENERAL EXAM: Alert, pleasant 83-year-old white female, comfortable in no apparent distress. Patient has obvious left facial droop and slurred speech, there has been an improvement in the slurring of the speech, and left tubular stock glass bulb machine former is stronger on today's exam. HEAD: Normocephalic/atraumatic. EYES: Normal reaction of pupils, equal size. Conjunctiva pink, sclera white. NOSE: Clear with pink turbinates. THROAT: No erythema or exudates. NECK: No masses, no JVD, no thyroid enlargement, no adenopathy. CHEST: No chest wall deformity. Symmetrical expansion. LUNGS: Equal air entry with no crackles, wheeze, rhonchi or dullness. CVS: Regular rate and rhythm, normal S1 and S2, no gallops, no murmurs, no rubs ABDOMEN: Soft, nontender. No hepatosplenomegaly, normal bowel sounds, no guarding or rigidity. EXTREMITIES: No clubbing, no edema, no cyanosis, 2+ pulses and upper and lower extremities. MUSCULOSKELETAL: Left tubular stock glass bulb machine former is weaker than the right SPINE: No scoliosis or deformity SKIN: No rashes CENTRAL NERVOUS SYSTEM: Alert and oriented -3. Left facial droop, slurred speech, and left sided weakness. PSYCHIATRIC: Alert and oriented -3. Appropriate affect. Intact judgment and insight. - Labs CBC & Chem 7: 07/13/18 06:07 07/13/18 06:07 Labs: Abnormal Lab Results - Last 24 Hours (Table) 07/13/18 07/13/18 Range/Units 06:07 06:07 RBC 3.22 L (3.80-5.40) m/uL Hgb 9.5 L (11.4-16.0) gm/dL Hct 28.9 L (34.0-46.0) % Plt Count 142 L (150-450) k/uL Chloride 112 H (98-107) mmol/L BUN 23 H (7-17) mg/dL Creatinine 1.38 H (0.52-1.04) mg/dL Assessment and Plan Plan: Assessment: #1. Acute stroke with left-sided facial paralysis, left-sided weakness and slurring of the speech, somewhat improved on today's exam #2. Chronic kidney disease #3. History of prior cerebrovascular accident 6 years ago with no residual #4. Hypertension #5. GERD Plan: Continue current medical treatment, we will proceed with BRETT tomorrow morning by Dr. VC Brown. Patient will need 30 day cardiac monitoring after discharge I performed a history & physical examination of the patient and discussed their management with my nurse practitioner, Ashwini Kinney. I reviewed the nurse practitioner's note and agree with the documented findings and plan of care. Lung sounds are clear, sounds are normal S1 and S2, no murmur. The findings and the impression was discussed with the patient. I attest to the documentation by the nurse practitioner. Time with Patient: Less than 30
--- NOTE | 2018-07-13 18:50 | PN ---
PROGRESS NOTE DATE OF SERVICE: 07/13/2018 INTERVAL HISTORY: This 83-year-old woman who was admitted with acute stroke involving the right hemisphere also had left-sided facial paralysis. Cardiology is planning BRETT tomorrow. No chest pain. No palpitations. No fever. Dysarthria is improving. PHYSICAL EXAM: Alert and oriented times three. Pulse 77, blood pressure 156/83, respirations 16, temperature 97.6, pulse ox 98 percent on room air. HEENT: Conjunctivae normal. Oral mucosa moist. Neck is no jugular venous distention. No carotid bruit. No lymph node enlargement. Cardiovascular system: S1, S2 muffled. Respiratory: Breath sounds diminished in the bases. No rhonchi. No crackles. ABDOMEN: Soft, nontender. No mass palpable. Legs: No edema and no swelling. Nervous system: Left upper motor neuron facial paralysis present. No other neurologic deficits noted. LABS: WBC 5.1, hemoglobin is 9.5, creatinine is 1.38. ASSESSMENT: 1. Acute stroke involving the right hemisphere causing left-sided facial paralysis. 2. Increased creatinine with chronic kidney disease stage III. 3. Anemia of chronic disease. 4. History of cerebrovascular accident, transient ischemic attack. 5. History of old left parietal lobe stroke. 6. Gastroesophageal reflux disease. 7. Hypertension. 8. History of varicose veins. 9. History of cholecystectomy. 10.History of bilateral cataracts. 11.FULL CODE. RECOMMENDATIONS AND DISCUSSION: Recommend to continue current medications, continue to monitor. Symptomatic treatment. Continue with antiplatelet agents. Continue with Lipitor. Otherwise follow closely with Neurology. Possible BRETT per Cardiology to rule out any intracardiac complications. Continue to monitor. further recommendations to follow. MMODL / IJN: [id number] /
[2018-07-13] MEDS: ATORVASTATIN 40 MG TAB PO SCH (22:36)
[2018-07-14 07:56] LABS: Basophils % (A) 1 %; Eosinophils # (A) 0.3 k/uL (0-0.7); Eosinophils % (A) 5 %; HCT 31.1 % (34.0-46.0); Lymphocytes # (A) 0.9 k/uL (1.0-4.8); Lymphocytes % (A) 17 %; MCH 28.8 pg (25.0-35.0); MCHC 32.2 g/dL (31.0-37.0); MCV 89.6 fL (80.0-100.0); Mean Platelet Volume 7.9; Monocytes # (A) 0.4 k/uL (0-1.0); Monocytes % (A) 7 %; Neutrophils # (A) 3.8 k/uL (1.3-7.7); Neutrophils % (A) 69 %; Platelet Count 162 k/uL (150-450); RBC 3.47 m/uL (3.80-5.40); RDW 13.3 % (11.5-15.5); WBC 5.5 k/uL (3.8-10.6)
--- NOTE | 2018-07-14 08:08 | MR ---
EXAMINATION TYPE: MR brain wo con DATE OF EXAM: 07/14/2018 COMPARISON: CT 07/12/2018 HISTORY: 83-year-old female left facial droop TECHNIQUE: Multiplanar, multisequence images of the brain and brainstem were acquired without IV con trast. Diffusion weighted imaging is performed. FINDINGS: There is patchy cortically based restricted diffusion in the right precentral gyrus and also a couple cortical foci in the right postcentral gyrus as well. Small cortical focus of restricted diffusion a lso noted in the posterior left occipital parietal junction. There is corresponding increased signal on T2/FLAIR in these regions in addition to moderate patchy a nd confluent background of chronic white matter changes with old encephalomalacia in the left temporo parietal junction with surrounding glial cysts. There is [id number] generalized tentorial volume loss and secondary mild prominence of the vent ricular system. No mass effect, midline shift shift, herniation, effacement of basal cisterns, or extra-axial fluid c ollection. Major intracranial flow voids are intact. Midline structures demonstrate normal morphology. The craniocervical junction is normal. Trace mucosal thickening ethmoid air cells. Globes are intact. IMPRESSION: 1. Old infarct left temporoparietal junction. 2. Areas of acute cortical infarct involving the right precentral and postcentral gyrus as well as a tiny focus of cortical infarct at the left occipitoparietal junction. The presence of T2/FLAIR signal indicates greater than 6 hours in duration. Given the bilaterality, consider a central embolic sourc e. 3. Background of moderate patchy and confluent burden of chronic small vessel ischemic disease. 4. No midline shift or mass effect.
[2018-07-14 08:21] LABS: Calcium 9.3 mg/dL (8.4-10.2); Potassium 4.4 mmol/L (3.5-5.1)
[2018-07-14] MEDS: HEPARIN SODIUM,PORCINE 5,000 UNIT/ML 1 ML VIAL SQ SCH ×2 (08:55→21:32)
[2018-07-14] MEDS: PANTOPRAZOLE 40 MG/10 ML VIAL IVP SCH (08:59)
--- NOTE | 2018-07-14 10:39 | PN ---
PROGRESS NOTE Mrs. Lu is an 83-year-old female who presented with symptoms consistent with cerebrovascular accident. She is feeling well today. She is denying any symptoms of chest pain. Her breathing has been stable. She denies any dizziness or palpitation. She denies any nausea. She continued to be in sinus mechanism. She is scheduled to undergo BRETT by Dr. Breanne Brown this morning. She had an MRI that showed area of acute cortical infarct involving the right precentral and postcentral gyrus. She continues to be at this time on aspirin once a day, Lipitor 40 mg daily, Plavix 75 mg daily, Protonix 40 mg daily. PHYSICAL EXAMINATION: Blood pressure 135/80 with the heart rate in the 60s. LUNGS: Clear. HEART: Regular rate and rhythm. S1, S2. No S3. No rub. ABDOMEN: Soft, nontender. EXTREMITIES: No edema. LAB DATA: Lab data revealed a BUN and creatinine 20 and 1.33, potassium 4.4. IMPRESSION: 1. Cerebrovascular accident. 2. History of hyperlipidemia. 3. History of hypertension. RECOMMENDATION: Patient will undergo transesophageal echocardiogram today to rule out any cardiac etiology to her presentation and depending on that, further recommendation will be made. MMODL / IJN: [id number] /
[2018-07-14] MEDS ORDERED: fentaNYL (PF) 50 MCG/ML 2 ML AMP ONE (11:42)
[2018-07-14] MEDS ORDERED: MIDAZOLAM 2 MG/2 ML VIAL ONE (11:42)
[2018-07-14] MEDS ORDERED: SODIUM CHLORIDE 0.9% 500 ML IV ONE (11:57)
[2018-07-14] MEDS: BENZOCAINE SPRAY 1 CAN MUCOUS MEM ONE ×2 (12:01→12:07)
[2018-07-14] MEDS ORDERED: fentaNYL (PF) 50 MCG/ML 2 ML AMP IV ONE (12:07)
[2018-07-14] MEDS ORDERED: MIDAZOLAM 2 MG/2 ML VIAL IV ONE (12:08)
--- NOTE | 2018-07-14 12:36 | ECHOT ---
TRANSESOPHAGEAL ECHOCARDIOGRAM Mrs. Lu is admitted with symptoms suggestive of TIA or stroke. Patient's carotid arteries were normal. There is no definite past history of atrial fibrillation. In view of the history suggestive of embolic stroke, the patient was recommended to have a BRETT to rule out any evidence of cardiac thrombi. PROCEDURE: Patient was given intravenous sedation with Versed and fentanyl and transesophageal echocardiogram was performed without any complications. Left ventricular chamber is normal in size with normal left ventricular systolic functions. Mitral valve morphology is normal. Aortic valve is mildly thickened. Tricuspid valve morphology is normal. Color Doppler study shows evidence of mild degree of mitral and aortic regurgitation. The left atrial appendage is clear. There is no evidence of thrombus in left atrium or atrial appendage. Interatrial septum is intact. There is no evidence of any PFO. FINAL IMPRESSION: 1. There is no evidence of thrombus in left atrial appendage or left atrium. 2. Interatrial septum is intact. There is no evidence of patent foramen ovale. 3. Left ventricular systolic function is normal. 4. Color Doppler study shows evidence of mild degree of mitral and aortic regurgitation. MMODL / IJN: [id number] /
--- NOTE | 2018-07-14 14:01 | FL ---
COMPARISON: NONE DATE OF EXAM: 07/14/2018 HISTORY: aspiration risk A number of thin and thick substances were ingested under the care of the department of speech pathol ogy. There is no evidence of aspiration or penetration. There is no evidence of obstruction. 1 min tati and 3 seconds of fluoroscopy utilized. IMPRESSION: 1. No evidence of aspiration or penetration.
[2018-07-14] MEDS: MULTIVITAMINS, THERA 1 EACH TAB PO SCH (14:12)
[2018-07-14] MEDS: ASPIRIN 81 MG PO SCH (14:12)
[2018-07-14] MEDS: CLOPIDOGREL 75 MG TAB PO SCH (14:12)
--- NOTE | 2018-07-14 20:40 | P.PN ---
Subjective Progress Note Date: 07/14/18 Progress notel being dictated for Dr. Lauren Interval history: This is an 83-year-old female admitted with acute CVA, left facial paralysis, acute renal failure, in a patient with history of hypertension , CVA and multiple other medical issues. Underwent BRETT today reporting no evidence of thrombus, intact intra-atrial septum, no evidence of patent foraminal ovale, normal LV function. Brain MRI completed, final results pending. Telemetry sinus rhythm. Denies chest pain, palpitations, shortness of breath. Denies any lightheadedness, dizziness or focal deficits. Afebrile. Creatinine 1.33-appears to be baseline. Objective - Vital Signs Vital signs: Vital Signs Temp 97.4 F L 07/14/18 11:17 Pulse 85 07/14/18 15:12 Resp 20 07/14/18 15:12 BP 136/65 07/14/18 15:12 Pulse Ox 97 07/14/18 15:12 Intake & Output 07/14/18 07/14/18 07/15/18 06:59 18:59 06:59 Intake Total 250 Output Total 400 Balance -400 250 Weight 59.2 kg Intake: IV 250 Sodium Chloride 0.9% 1, 200 000 ml @ 50 mls/hr IV . Q20H BRIAN Rx#:[id number] Output: Urine 400 Other: Voiding Method Toilet # Voids 1 - Exam PHYSICAL EXAM: VITAL SIGNS: As above GENERAL: Sitting up in bed, no acute distress HEENT: Conjunctivae normal. eyes normal. Left facial droop. NECK: No JVD. No thyroid enlargement. No LNs CARDIOVASCULAR: S1, S2 muffled. No murmur RESPIRATION: Breath sounds diminished in the bases. No rhonchi or crackles. No bronchial breathing. ABDOMEN: Soft, nontender . No guarding. no masses palpable. Bowel sounds heard. LEGS: No edema. no swelling. PSYCHIATRY: Alert and oriented -3, mood and affect normal. NERVOUS SYSTEM: Left facial droop, dysarthria improving Skin: no ulcer no rash Joints: No active swelling. No inflammation. Lymphatic system. No LN neck axilla or groin. - Labs CBC & Chem 7: 07/14/18 07:26 07/14/18 07:26 Labs: Abnormal Lab Results - Last 24 Hours (Table) 07/14/18 07/14/18 Range/Units 07:26 07:26 RBC 3.47 L (3.80-5.40) m/uL Hgb 10.0 L (11.4-16.0) gm/dL Hct 31.1 L (34.0-46.0) % Lymphocytes # 0.9 L (1.0-4.8) k/uL Chloride 111 H (98-107) mmol/L BUN 20 H (7-17) mg/dL Creatinine 1.33 H (0.52-1.04) mg/dL Assessment and Plan Assessment: 1. Acute CVA involving the right hemisphere, left-sided facial paralysis, in a patient with history of prior left parietal CVA, TIA. Status post BRETT , reporting no evidence of thrombus, intact intra-atrial septum, no evidence of patent foraminal ovale, normal LV function. 2. Acute on chronic renal failure, stage III secondary to hypertensive nephrosclerosis 3. Anemia of chronic disease 4. Gastroesophageal reflux disease 5. hypertension Plan: Continue on current medication regime ,monitoring and symptomatic treatment. Maintain statin, antiplatelets. Brain MRI completed, report now in , reporting old infarct left temporal parietal junction, areas of acute cortical infarct involving the right precentral and postcentral gyrus,, tiny focus of cortical infarct at the left occipital parietal junction, greater than 6 hours in duration, consider central embolic source. No midline shift or mass effect. Discharge planning in progress pending neurology clearance. Close monitoring of renal function. The impression and plan of care has been dictated as directed. : I performed a history and examination of this patient, discussed the same with the dictator. I agree with the dictator's note ,documented as a scribe. Any additional findings or plans will be noted.
[2018-07-14] MEDS: ATORVASTATIN 40 MG TAB PO SCH (21:32)
[2018-07-14] MEDS: METOPROLOL TARTRATE 25 MG TAB PO SCH (21:33)
[2018-07-15 06:58] LABS: Calcium 9.2 mg/dL (8.4-10.2); Potassium 4.5 mmol/L (3.5-5.1)
[2018-07-15 07:09] LABS: Basophils # (A) 0.1 k/uL (0-0.2); Basophils % (A) 1 %; Eosinophils # (A) 0.3 k/uL (0-0.7); Eosinophils % (A) 5 %; HCT 31.8 % (34.0-46.0); HGB 10.1 gm/dL (11.4-16.0); Lymphocytes # (A) 1.3 k/uL (1.0-4.8); Lymphocytes % (A) 20 %; MCH 28.9 pg (25.0-35.0); MCHC 31.9 g/dL (31.0-37.0); MCV 90.8 fL (80.0-100.0); Mean Platelet Volume 7.5; Monocytes # (A) 0.4 k/uL (0-1.0); Monocytes % (A) 6 %; Neutrophils # (A) 4.2 k/uL (1.3-7.7); Neutrophils % (A) 66 %; Platelet Count 174 k/uL (150-450); RDW 13.4 % (11.5-15.5); WBC 6.3 k/uL (3.8-10.6)
[2018-07-15] MEDS ORDERED: PANTOPRAZOLE 40 MG TABLET PO SCH (07:30)
[2018-07-15] MEDS: MULTIVITAMINS, THERA 1 EACH TAB PO SCH (08:30)
[2018-07-15] MEDS: ASPIRIN 81 MG PO SCH (08:30)
[2018-07-15] MEDS: METOPROLOL TARTRATE 25 MG TAB PO SCH (08:30)
[2018-07-15] MEDS: CLOPIDOGREL 75 MG TAB PO SCH (08:30)
[2018-07-15] MEDS: HEPARIN SODIUM,PORCINE 5,000 UNIT/ML 1 ML VIAL SQ SCH (08:30)
[2018-07-15 08:56] VITALS: BP 150/104; PULSE 83; RESP 20; TEMP 98.1
--- NOTE | 2018-07-15 09:45 | ECHOF ---
Referral Reason:left sided weakness, slurred speech MEASUREMENTS -------- HEIGHT: 152.4 cm WEIGHT: 59.0 kg BP: 149/66 IVSd: 0.9 cm (0.6 - 1.1) LVIDd: 3.7 cm (3.9 - 5.3) LVPWd: 1.0 cm (0.6 - 1.1) EDV(Teich): 57 ml IVSs: 1.4 cm LVIDs: 2.1 cm LVPWs: 1.4 cm %IVS Thck: 57 % ESV(Teich): 14 ml EF(Teich): 74 % %FS: 42 % SV(Teich): 42 ml LA Diam: 2.2 cm (2.7 - 3.8) RVIDd: 2.2 cm (< 3.3) LALs A4C: 5.4 cm LAAs A4C: 15.3 cm LAESV A-L A4C: 36 ml LAESV MOD A4C: 34 ml LALs A2C: 6.8 cm LAAs A2C: 19.7 cm LAESV A-L A2C: 49 ml LAESV MOD A2C: 46 ml LAESV(A-L): 47 ml LAESV Index (A-L): 30.13 ml/m Ao Diam: 2.4 cm (2.0 - 3.7) AV Cusp: 1.7 cm (1.5 - 2.6) EPSS: 0.3 cm MV E Joaquin: 0.78 m/s MV DecT: 263 ms MV Dec Yoakum: 3.0 m/s MV A Joaquin: 1.10 m/s MV E/A Ratio: 0.71 MV PHT: 76 ms LVOT Vmax: 1.28 m/s LVOT maxP.59 mmHg LVOT Vmax: 1.32 m/s LVOT Vmean: 0.82 m/s LVOT maxP.98 mmHg LVOT meanP.15 mmHg LVOT Env.Ti: 388 ms LVOT VTI: 31.7 cm AV Vmax: 1.84 m/s AV maxP.59 mmHg AV Vmax: 1.89 m/s AV Vmean: 1.27 m/s AV maxP.36 mmHg AV meanP.19 mmHg AV Env.Ti: 341 ms AV VTI: 43.4 cm AR Vmax: 4.56 m/s AR maxP.13 mmHg AR PHT: 471 ms AR Dec Time: 1625 ms AR Dec Yo[place]um: 2.8 m/s TR Vmax: 2.51 m/s TR maxP.27 mmHg RAP: 5.00 mmHg RVSP: 30.27 mmHg MV EF SLOPE: 55.33 mm/s (70 - 150) MV EXCURSION: 13.84 mm (> 18.000) FINDINGS -------- Sinus rhythm with extra systolic beats. This was a technically adequate study. The left ventricular size is normal. Left ventricular wall thickness is normal. Overall left vent ricular systolic function is normal with, an EF between 55 - 60 %. The right ventricle is normal in size. LA is midly dilated 29-33ml/m2. The right atrium is normal in size. There is mild aortic valve sclerosis. There is mild aortic regurgitation. There is mild aortic st enosis present. Peak/mean gradient across the Aortic Valve is 14.36mmHg / 7.19mmHg. The mitral valve leaflets are mildly thickened. Mild mitral annular calcification present. Mild m itral regurgitation is present. Mild tricuspid regurgitation present. Right ventricular systolic pressure is normal at < 35 mmHg. Trace/mild (physiologic) pulmonic regurgitation. The aortic root size is normal. Normal inferior vena cava with normal inspiratory collapse consistent with estimated right atrial pre ssure of 5 mmHg. There is no pericardial effusion. CONCLUSIONS -------- 1. Sinus rhythm with extra systolic beats. 2. This was a technically adequate study. 3. The left ventricular size is normal. 4. Left ventricular wall thickness is normal. 5. Overall left ventricular systolic function is normal with, an EF between 55 - 60 %. 6. The right ventricle is normal in size. 7. LA is midly dilated 29-33ml/m2. 8. The right atrium is normal in size. 9. There is mild aortic valve sclerosis. 10. There is mild aortic regurgitation. 11. There is mild aortic stenosis present. 12. Peak/mean gradient across the Aortic Valve is 14.36mmHg / 7.19mmHg. 13. The mitral valve leaflets are mildly thickened. 14. Mild mitral annular calcification present. 15. Mild mitral regurgitation is present. 16. Mild tricuspid regurgitation present. 17. Right ventricular systolic pressure is normal at < 35 mmHg. 18. Trace/mild (physiologic) pulmonic regurgitation. 19. The aortic root size is normal. 20. Normal inferior vena cava with normal inspiratory collapse consistent with estimated right atrial pressure of 5 mmHg. 21. There is no pericardial effusion. CORPORATE QUALITY ENGINEER: Josiane Arreguin RDCS
--- NOTE | 2018-07-15 11:26 | P.PN ---
Subjective 50-year-old female came in with progressive weakness of bilateral lower limbs and patient has significant the spinal metastasis upper breast cancer. Patient him come symptoms of weakness and intermittent with improved with Decadron patient underwent lumbosacral MRI which did not show any significant cord compression or cauda equina. Patient will undergo thoracic MRI today continue his steroids. Patient is complaining of sore throat secondary to acid reflux patient is already on Protonix twice a day which will be continued and patient was asked to elevate the head and. Patient almost has normal strength in bilateral lower limbs and upper limbs today. Patient will undergo radiation therapy as well Constitutional: Denied any fatigue denied any fever. Cardio vascular: denied any chest pain, palpitations Gastrointestinal denied any nausea vomiting Pulmonary: Denied any shortness of breath cough Neurologic denied any new focal deficits Objective - Vital Signs Vital signs: Vital Signs Temp 98.1 F 07/15/18 07:50 Pulse 83 07/15/18 07:50 Resp 20 07/15/18 07:50 BP 150/104 07/15/18 07:50 Pulse Ox 96 07/15/18 07:50 Intake & Output 07/14/18 07/15/18 07/15/18 18:59 06:59 18:59 Intake Total 250 500 240 Balance 250 500 240 Weight 58.5 kg Intake: IV 250 20 0.9 20 Sodium Chloride 0.9% 1, 200 000 ml @ 50 mls/hr IV . Q20H [facility] Rx#:[id number] Oral 480 240 Other: Voiding Method Toilet # Voids 3 - Exam PHYSICAL EXAMINATION: GENERAL: The patient is alert and oriented x3, not in any acute distress. Well developed, well nourished. As have generalized weakness HEENT: Pupils are round and equally reacting to light. EOMI. No scleral icterus. No conjunctival pallor. Normocephalic, atraumatic. No pharyngeal erythema. No thyromegaly. CARDIOVASCULAR: S1 and S2 present. No murmurs, rubs, or gallops. PULMONARY: Chest is clear to auscultation, no wheezing or crackles. Reproducible chest pain ABDOMEN: Soft, nontender, nondistended, normoactive bowel sounds. No palpable organomegaly. MUSCULOSKELETAL: No joint swelling or deformity. EXTREMITIES: No cyanosis, clubbing, or pedal edema. NEUROLOGICAL: Gross neurological examination did not reveal any focal deficits. 4+/5 strength in upper and lower extremities SKIN: No rashes. - Labs CBC & Chem 7: 07/15/18 06:14 07/15/18 06:14 Labs: Abnormal Lab Results - Last 24 Hours (Table) 07/15/18 07/15/18 Range/Units 06:14 06:14 RBC 3.50 L (3.80-5.40) m/uL Hgb 10.1 L (11.4-16.0) gm/dL Hct 31.8 L (34.0-46.0) % Chloride 110 H (98-107) mmol/L BUN 22 H (7-17) mg/dL Creatinine 1.40 H (0.52-1.04) mg/dL Assessment and Plan Plan: Assessment and Plan Plan: -Increasing weakness and lethargy: Secondary to cancer itself most probably. Patient has extensive osseous metastases including metastases to the lumbosacral spine although patient does not have any other symptoms of chronic compression, MRI of lumbosacral spine did not show any significant can't compression patient the weakness and bilateral lower limbs significantly improved after Decadron which will be continued. Patient will undergo thoracic spine MRI today. Patient probably can be discharged tomorrow if there is no significant can't compression on thoracic MRI with oral Decadron and GI prophylaxis -Gastroesophageal reflux disease due to systemic steroids -Asymptomatic bacteriuria will not require any antibiotics. -Metastatic breast cancer: Further management as per oncology -Chest pain and musculoskeletal in nature. -Patient is on anticoagulation probably is being continued as anticoagulation after her recent hip surgery for DVT prophylaxis
--- NOTE | 2018-07-15 16:06 | P.DS ---
Providers Date of admission: 07/11/18 14:07 Expected date of discharge: 07/15/18 Attending physician: Jaye Lauren Consults: 07/11/18 14:07 Consult Physician Routine Consulting Provider: Arleen Machuca Consult Reason/Comments: CVA Do you want consulting provider notified?: Yes 07/11/18 15:41 Consult Physician Urgent Consulting Provider: Cirilo Estes Consult Reason/Comments: CVA/recurrent TIAs. assess for BRETT Do you want consulting provider notified?: Yes 07/11/18 18:23 Consult Physician Routine Consulting Provider: Branden Brown Consult Reason/Comments: possible BRETT Do you want consulting provider notified?: Yes Primary care physician: Afsaneh Razo [facility] Course: Final Diagnoses: 1. Acute CVA involving the right hemisphere, left-sided facial paralysis, in a patient with history of prior left parietal CVA, TIA. Status post BRETT , reporting no evidence of thrombus, intact intra-atrial septum, no evidence of patent foraminal ovale, normal LV function. 2. Acute on chronic renal failure, stage III secondary to hypertensive nephrosclerosis, 3. Anemia of chronic disease 4. Gastroesophageal reflux disease 5. hypertension Hospital course:This is an 83-year-old female admitted with acute CVA, left facial paralysis, acute renal failure, in a patient with history of hypertension , CVA and multiple other medical issues. Underwent BRETT reporting no evidence of thrombus, intact intra-atrial septum, no evidence of patent foraminal ovale, normal LV function. Brain MRI completed , discussed with neurologist Dr. Machuca .Reporting old infarct left temporal parietal junction, areas of acute cortical infarct involving the right precentral and postcentral gyrus,, tiny focus of cortical infarct at the left occipital parietal junction, greater than 6 hours in duration, consider central embolic source. CT angio head and neck reporting mild to moderate at serial sclerotic narrowing within the right carotid siphon, tortuous proximal common carotid arteries, common internal and vertebral arteries remain widely patent. Maintained on statin, Plavix and baby aspirin. Significant clinical improvement. Cleared by both cardiology and neurology for discharge. Event monitor at [place]. Patient is being discharged home in a stable condition with guarded prognosis. EXAM: GENERAL: Alert and oriented 3, no acute distress CARDIOVASCULAR: S1, S2 muffled. No murmur RESPIRATION: Breath sounds diminished in the bases. No rhonchi or crackles. ABDOMEN: Soft, nontender . No guarding. no masses palpable. Bowel sounds heard. NERVOUS SYSTEM: Improving Left facial droop, dysarthria improving The impression and plan of care has been dictated as directed. : I performed a history and examination of this patient, discussed the same with the dictator. I agree with the dictator's note ,documented as a scribe. Any additional findings or plans will be noted. Time taken: 35 minutes Patient Condition at Discharge: Stable Plan - Discharge Summary Discharge Rx Participant: No New Discharge Prescriptions: New Atorvastatin [Lipitor] 40 mg PO HS #30 tab Clopidogrel [Plavix] 75 mg PO DAILY #30 tab Metoprolol Tartrate [Lopressor] 25 mg PO BID #60 tab Pantoprazole [Protonix] 40 mg PO AC-BRKFST #30 tablet. Continue Glucosam/Niranjan-Msm1/C/New/Bosw [Glucosamine-Chondroitin Tablet] 1 tab PO DAILY Multivitamins, Thera [Multivitamin (formulary)] 1 tab PO DAILY Aspirin [Adult Low Dose Aspirin EC] 81 mg PO DAILY Discontinued Simvastatin [Zocor] 20 mg PO HS Metoprolol Tartrate [Lopressor] 25 mg PO QAM Discharge Medication List Aspirin [Adult Low Dose Aspirin EC] 81 mg PO DAILY 11/14/16 [History] Glucosam/Niranjan-Msm1/C/New/Bosw [Glucosamine-Chondroitin Tablet] 1 tab PO DAILY 11/14/16 [History] Multivitamins, Thera [Multivitamin (formulary)] 1 tab PO DAILY 11/14/16 [History ] Atorvastatin [Lipitor] 40 mg PO HS #30 tab 07/14/18 [Rx] Clopidogrel [Plavix] 75 mg PO DAILY #30 tab 07/14/18 [Rx] Metoprolol Tartrate [Lopressor] 25 mg PO BID #60 tab 07/14/18 [Rx] Pantoprazole [Protonix] 40 mg PO AC-BRKFST #30 tablet. 07/14/18 [Rx] Follow up Appointment(s)/Referral(s): Aniket Arana PAC [REFERRING] - 07/17/18 2:20 pm Ben Sanders PAC [PHYSICIAN FOOD AND BEVERAGE SERVICE MANAGER] - 1 Week (Neurology. Office will call with follow up appointment. 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 Pending neurology's clearance post MRI, final dc rec. Discharge Disposition: HOME SELF-CARE
== END 2018-07-15 10:55 | disposition home or self-care (01) | DRG 65 ==
LOC: EC 11:44 → 6SEL 14:07
PROVIDERS: ADMIT Hospitalist; ATTEND Hospitalist
DX: I63.9 Cerebral infarction, unspecified (principal); G81.91 Hemiplegia, unspecified affecting right dominant side; C79.51 Secondary malignant neoplasm of bone; N17.9 Acute kidney failure, unspecified; R47.81 Slurred speech; R29.810 Facial weakness; R29.701 NIHSS score 1; N18.3 Chronic kidney disease, stage 3 (moderate); I12.9 Hypertensive chronic kidney disease with stage 1 through stage 4 chronic kidney disease, or unspecified chronic kidney disease; D63.1 Anemia in chronic kidney disease; C50.919 Malignant neoplasm of unspecified site of unspecified female breast; E78.5 Hyperlipidemia, unspecified; K21.9 Gastro-esophageal reflux disease without esophagitis; R13.10 Dysphagia, unspecified; Z86.73 Personal history of transient ischemic attack (TIA), and cerebral infarction without residual deficits; Z90.49 Acquired absence of other specified parts of digestive tract; Z79.82 Long term (current) use of aspirin; Z79.899 Other long term (current) drug therapy; Z80.9 Family history of malignant neoplasm, unspecified; Z79.02 Long term (current) use of antithrombotics/antiplatelets
CPT/HCPCS: 36415; 70450; 70496; 70498; 70551; 71045; 74230; 80048; 80053; 80061; 81003; 82550; 82553; 84484; 85025; 85610; 85730; 93005; 93306; 93312; 93320; 93325; 99285

== ENCOUNTER → 2018-08-25 | Outpatient (CLI) | payer MEDICARE, OTHER ==
--- NOTE | 2018-08-26 09:11 | XR ---
EXAMINATION TYPE: XR thoracic spine complete DATE OF EXAM: 08/25/2018 CLINICAL HISTORY: Pain. TECHNIQUE: Frontal, lateral, and swimmer's view of thoracic spine are obtained. COMPARISON: None. FINDINGS: Osseous structures are demineralized. Exaggerated thoracic kyphosis is seen on lateral imag es. Thoracic spine show S-shaped scoliosis levoconvex in the upper thoracic spine and dextroconvex in curvature in the upper lumbar spine without evidence of acute fracture or dislocation. Vertebral jeovany dy heights are preserved. There is mild to moderate multilevel disc space narrowing in the upper to m id thoracic spine. There is prominent lateral spurring in the visualized upper lumbar spine. Cholecys tectomy clips are appreciated. There is moderate to large size hiatal hernia or intrathoracic stomach noted. There are old fractures of the posterior right seventh and eighth ribs. IMPRESSION: S-shaped scoliosis with exaggerated kyphosis and other findings as detailed above.
--- NOTE | 2018-08-26 09:13 | XR ---
EXAMINATION TYPE: XR ribs LT DATE OF EXAM: 08/25/2018 COMPARISON: Chest x-ray July 11, 2018 HISTORY: Left upper posterior rib pain. TECHNIQUE: A frontal and oblique images left-sided ribs are acquired. FINDINGS: Demineralization is redemonstrated which is noted to lower radiographic sensitivity. No acu te displaced left-sided rib fractures are seen. No suspicious expansile or destructive lesions are ev ident. There is fairly large size hiatal hernia redemonstrated. IMPRESSION: No acute displaced left-sided rib fractures are seen.
== END | disposition home or self-care (01) ==
LOC: RADXRMAIN 16:02
PROVIDERS: ATTEND Family Medicine
DX: M48.04 Spinal stenosis, thoracic region (principal); M41.84 Other forms of scoliosis, thoracic region; R07.81 Pleurodynia
CPT/HCPCS: 72072

== ENCOUNTER 2018-10-22 06:55 | Day surgery (SDC) | payer MEDICARE, OTHER ==
[2018-10-21 09:41] VITALS: BMI 23.0
[~2018-10-22 06:55] MED LIST changes: -LACTATED RINGERS 1,000 ML IV SCH; -MIDAZOLAM 2 MG/2 ML VIAL IV PRN; +SODIUM CHLORIDE 0.9% 1,000 ML IV SCH; +ceFAZolin IN SWFI 2 GM/20 ML SYRINGE IVP ONE
[2018-10-22 07:14] VITALS: PULSE 61; TEMP 97.9
[2018-10-22] MEDS ORDERED: fentaNYL (PF) 50 MCG/ML 2 ML AMP IVP ONE (07:52)
[2018-10-22] MEDS ORDERED: LIDOCAINE 1% INJ 10MG/ML (20 ML MDV) SQ ONE (08:01)
--- NOTE | 2018-10-22 08:12 | P.PCN ---
Date of Procedure: 10/22/18 Preoperative Diagnosis: History of CVA, rule out atrial fibrillation Postoperative Diagnosis: The same Procedure(s) Performed: Loop recorder insertion Description of Procedure: This patient had left-sided CVA and was diagnosed in July. The etiology was not clear. Patient was evaluated by 30 day monitor without any evidence of atrial fibrillation. Patient was advised to have a loop recorder insertion by Dr. VC Brown. Patient was brought to the lab in a fasting state. She was prepped and draped in the usual fashion. Patient was given IV sedation with fentanyl 12.5 g. The skin in the third intercostal space on the left side was infiltrated with lidocaine. An incision was made in the skin and the loop recorder was inserted in the usual fashion. Patient tolerated the procedure well. The incision was closed with 1 stay suture. No immediate complications. Excellent signals were obtained. Programming. The sensitivity programmed to 0.035 mV, a BRETT/VF detection is on. The tachycardia detection is programmed to a rate of 1 46 bpm. The Reji detection is programmed to 30 bpm. Positive detection is programmed to 3 seconds. Plan: Patient will be discharged home later today. Follow-up with Dr. VC Brown in one week. Patient to continue home medications. She is also given prophylactic antibiotics with Keflex 500 mg to be taken 2 times a day for 3 days.
[2018-10-22] MEDS ORDERED: SODIUM CHLORIDE 0.9% 1,000 ML IV SCH (08:15)
[2018-10-22 08:23] VITALS: BP 167/77; RESP 16
== END 2018-10-22 08:46 | disposition home or self-care (01) ==
LOC: CATHEP 06:55
PROVIDERS: ATTEND Internal Medicine Cardiovascular Disease
DX: Z45.09 Encounter for adjustment and management of other cardiac device (principal); Z86.73 Personal history of transient ischemic attack (TIA), and cerebral infarction without residual deficits
CPT/HCPCS: 33282; C1764; J2001; J3010; J0690

== ENCOUNTER → 2019-03-23 | Outpatient (CLI) | payer MEDICARE, OTHER ==
--- NOTE | 2019-03-23 17:00 | BD ---
EXAMINATION TYPE: Axial Bone Density DATE OF EXAM: 03/23/2019 COMPARISON: NONE CLINICAL HISTORY: post menopausal Height: 5' Weight: 129 FRAX RISK QUESTIONS: History of Fracture in Adulthood: y Secondary Osteoporosis: RISK FACTORS HISTORY OF: History of Wrist Fracture: rt When: 81 age Postmenopausal woman: y Lost more than 2 inches in height since high school: 2 MEDICATIONS: Additional Medications: blood pressure, cholesterol, memory, Additional History: EXAM MEASUREMENTS: Bone mineral densitometry was performed using the Rezora System. Bone mineral density as measured about the Lumbar spine is: ----- L1-L4(G/cm2): 1.061 T Score Values are as follows: ----- L2: -2.0 ----- L3: -1.6 ----- L4: -0.2 ----- L1-L4: -1.2 Bone mineral density about the R hip (g/cm2): 0.664 Bone mineral density about the L hip (g/cm2): 0.718 T Score values are as follows: -----R Neck: -2.7 -----L Neck: -2.3 -----R Total: -2.3 -----L Total: -2.3 IMPRESSION: Osteoporosis (T Score less than -2.5). There is increased fracture risk and therapy is usually indicated based on age. Re-Screen 1-2 years. NOTE: T-SCORE=SD OF THE YOUNG ADULT MEAN.
== END | disposition home or self-care (01) ==
LOC: RADBDWWP 15:16
PROVIDERS: ATTEND Family Medicine
DX: M81.0 Age-related osteoporosis without current pathological fracture (principal); N95.1 Menopausal and female climacteric states
CPT/HCPCS: 77080

== ENCOUNTER → 2019-06-16 | Outpatient (CLI) | payer MEDICARE, OTHER ==
[~2019-06-16] MED LIST changes: +DENOSUMAB 60 MG/ML 1 ML SYRINGE SQ NR; -SODIUM CHLORIDE 0.9% 1,000 ML IV SCH; -ceFAZolin IN SWFI 2 GM/20 ML SYRINGE IVP ONE
[2019-06-16 12:13] VITALS: BP 175/83; PULSE 58; RESP 16; TEMP 97.6
== END | disposition home or self-care (01) ==
LOC: PROCWHC3 11:32
PROVIDERS: ATTEND Family Medicine
DX: M81.0 Age-related osteoporosis without current pathological fracture (principal)
CPT/HCPCS: 96372; J0897

== ENCOUNTER → 2019-12-20 | Outpatient (CLI) | payer MEDICARE, OTHER ==
[2019-12-20 11:34] VITALS: BP 137/71; PULSE 71; RESP 16; TEMP 97.5
== END | disposition home or self-care (01) ==
LOC: PROCWHC3 11:13
PROVIDERS: ATTEND Family Medicine
DX: M81.0 Age-related osteoporosis without current pathological fracture (principal)
CPT/HCPCS: 96372; J0897

== ENCOUNTER → 2020-03-15 | Outpatient (CLI) | payer MEDICARE, OTHER | END | disposition home or self-care (01) | LOC: LABWHC1 11:14 | PROVIDERS: ATTEND Internal Medicine Clinical Cardiac Electrophysiology | DX: U07.1 COVID-19 (principal) | CPT/HCPCS: 87635 ==

== ENCOUNTER 2020-03-17 10:00 | Day surgery (SDC) | payer MEDICARE, OTHER ==
[2020-03-16 11:27] VITALS: BMI 21.3
[~2020-03-17 10:00] MED LIST changes: -DENOSUMAB 60 MG/ML 1 ML SYRINGE SQ NR; +SODIUM CHLORIDE 0.9% 1,000 ML IV SCH
[2020-03-17 10:42] VITALS: RESP 16; TEMP 97.5
[2020-03-17] MEDS ORDERED: LIDOCAINE 1% INJ 10MG/ML (20 ML MDV) ONE (11:06)
[2020-03-17] MEDS ORDERED: MIDAZOLAM 2 MG/2 ML VIAL IVP ONE (11:25)
--- NOTE | 2020-03-17 11:43 | P.PCN ---
Preoperative Diagnosis: Loop explant under sedation and local anesthesia. Patient was brought to the EP lab in a fasting state. Written informed consent was obtained prior to the procedure. The subcutaneous device was successfully explanted under local anesthesia. Preoperative antibiotics were administered. The wound was closed in layers and dressed per protocol. Result: Successful loop monitor explantation. Patient underwent EP procedure under conscious sedation/moderate sedation, monitoring of the level of consciousness and physiologic parameters including but not limited to vital signs and oxygenation. Patient tolerated the procedure well without any acute complications. Start time: 1125 Stop time: 1135
[2020-03-17 12:25] VITALS: BP 158/83; PULSE 64
== END 2020-03-17 12:23 | disposition home or self-care (01) ==
LOC: CATHEP 10:00
PROVIDERS: ATTEND Internal Medicine Clinical Cardiac Electrophysiology
DX: Z45.09 Encounter for adjustment and management of other cardiac device (principal); I10 Essential (primary) hypertension; E78.5 Hyperlipidemia, unspecified; Z86.73 Personal history of transient ischemic attack (TIA), and cerebral infarction without residual deficits; Z79.02 Long term (current) use of antithrombotics/antiplatelets; Z79.899 Other long term (current) drug therapy
CPT/HCPCS: 33286; J2250; J0690

== ENCOUNTER → 2020-04-25 | Outpatient (CLI) | payer MEDICARE, OTHER ==
--- NOTE | 2020-04-25 13:05 | XR ---
EXAMINATION TYPE: XR chest 2V DATE OF EXAM: 04/25/2020 COMPARISON: NONE HISTORY: Shortness of breath TECHNIQUE: Frontal and lateral views of the chest are obtained. FINDINGS: Scattered senescent parenchymal changes noted. Hyperinflation compatible with COPD. No evidence for infiltrate. No evidence for atelectasis. Heart size is stable. Mediastinal structures are stable and grossly unremarkable. Large fixed hiatal hernia identified. No evidence for hilar prominence. Degenerative changes dorsal spine. IMPRESSION: 1. No evidence for acute pulmonary disease.
== END | disposition home or self-care (01) ==
LOC: RADXRMAIN 12:16
PROVIDERS: ATTEND Family Medicine
DX: J90 Pleural effusion, not elsewhere classified (principal)
CPT/HCPCS: 71046

== ENCOUNTER 2021-02-05 11:18 | Emergency (ER) | payer MEDICARE, OTHER ==
[2021-02-05 12:04] VITALS: TEMP 97.9
--- NOTE | 2021-02-05 12:07 | ED ---
Back Pain HPI - General Chief Complaint: Back Pain/Injury Stated Complaint: Fall last week/sob Source: patient, family, RN notes reviewed Limitations: no limitations - History of Present Illness Initial Comments: Patient is an 86-year-old female that presents emergency department with low to mid back pain. Daughter notes that she fell approximately week ago was unwitnessed. Patient was well-appearing in was in no apparent distress or pain while sitting in wheelchair in bed during exam and interview. Patient denied any head trauma or loss of consciousness or urinary or bowel incontinence chest pain shortness of breath headache nausea vomiting diarrhea constipation fever fatigue chills - Related Data Home Medications Medication Instructions Recorded Confirmed Glucosam/Niranjan-Msm1/C/New/Bosw 1 tab PO DAILY 11/14/16 03/17/20 [Glucosamine-Chondroitin Tablet] Multivitamins, Thera [Multivitamin 1 tab PO DAILY 11/14/16 03/17/20 (formulary)] Cholecalciferol [Vitamin D3] 5,000 unit PO DAILY 10/21/18 03/17/20 Ubidecarenone [Co Q-10] 200 mg PO DAILY 10/21/18 03/17/20 Melatonin 10 mg PO HS 03/16/20 03/17/20 Memantine [Namenda] 10 mg PO BID 03/16/20 03/17/20 Metoprolol Tartrate 25 mg PO BID 03/16/20 03/17/20 Previous Rx's Medication Instructions Recorded Atorvastatin [Lipitor] 40 mg PO HS #30 tab 07/14/18 Clopidogrel [Plavix] 75 mg PO DAILY #30 tab 07/14/18 Allergies Allergy/AdvReac Type Severity Reaction Status Date / Time No Known Allergies Allergy Verified 02/05/21 12:04 Review of Systems ROS Statement: Those systems with pertinent positive or pertinent negative responses have been documented in the HPI. ROS Other: All systems not noted in ROS Statement are negative. Past Medical History Past Medical History: CVA/TIA, Dementia, GERD/Reflux, Hypertension Additional Past Medical History / Comment(s): stroke x2 occas. diff getting words out, varicose veins, anemia,. OSTEOPOROSIS. History of Any Multi-Drug Resistant Organisms: None Reported Past Surgical History: Cholecystectomy Additional Past Surgical History / Comment(s): rommel cataracts, Past Anesthesia/Blood Transfusion Reactions: No Reported Reaction Past Psychological History: No Psychological Hx Reported Smoking Status: Never smoker Past Alcohol Use History: None Reported Past Drug Use History: None Reported - Past Family History Brother(s) Family Medical History: Cancer General Exam Limitations: no limitations General appearance: alert, in no apparent distress Head exam: Present: atraumatic, normocephalic, normal inspection Respiratory exam: Present: normal lung sounds bilaterally. Absent: respiratory distress, wheezes, rales, rhonchi, stridor Cardiovascular Exam: Present: regular rate, normal rhythm, normal heart sounds. Absent: systolic murmur, diastolic murmur, rubs, gallop, clicks GI/Abdominal exam: Present: soft, normal bowel sounds. Absent: distended, tenderness, guarding, rebound, rigid Extremities exam: Present: normal inspection, full ROM, normal capillary refill. Absent: tenderness, pedal edema, joint swelling, calf tenderness Back exam: Present: normal inspection, tenderness (Bilaterally in the mid to low back to moderate palpation.) Neurological exam: Present: alert, oriented X3, CN II-XII intact Psychiatric exam: Present: normal affect, normal mood Skin exam: Present: warm, dry, intact, normal color. Absent: rash Course Vital Signs 02/05/21 12:00 Temperature 97.9 F Pulse Rate 60 Respiratory 18 Rate Blood Pressure 181/95 O2 Sat by Pulse 98 Oximetry Medical Decision Making - Medical Decision Making 86-year-old female presents emergency department status post fall 1 week with somewhat low to mid back pain. Lumbar and thoracic spine x-rays ordered. Patient declined the need for any pain medication. X-rays negative for any acute fracture or dislocations. Case discussed with Dr. Jerome, patient to discharge home with follow-up to primary care. - Radiology Data Radiology results: report reviewed, image reviewed Lumbar x-ray: Moderate degenerative disc disease throughout along with hypertrophic acid arthropathy, Baastrups disease and grade 1 retrolisthesis at T12-L1 and L2-L3 Thoracic x-ray: Right hilar fullness may be projectional but appears increased from prior exam. Increased patchy left lower lung opacity. Anterior compression deformity of T11 his age indeterminate correlate for focal pain at this level. Disposition Clinical Impression: Thoracic back pain, Low back pain Disposition: HOME SELF-CARE Condition: Stable Instructions (If sedation given, give patient instructions): Acute Low Back Pain (ED) Additional Instructions: Please return to the Emergency Department if symptoms worsen or any other concerns. Follow-up primary care in 3-5 days. Take [id number] anti-inflammatories for symptom control. Rest and use as tolerated. Is patient prescribed a controlled substance at d/c from ED?: No Referrals: Stephania Castrejon MD [Primary Care Provider] - 1-2 days Time of Disposition: 13:43
--- NOTE | 2021-02-05 12:56 | XR ---
EXAMINATION TYPE: XR thoracic spine 3 views DATE OF EXAM: 02/05/2021 COMPARISON: 08/25/2018 HISTORY: 86-year-old female with fall and pain FINDINGS: Right hilar fullness appears increased from prior. Patchy left lower lung opacity appears increased. Overall alignment appears maintained. Inferior endplate deformity with a resultant mild anterior wedg ing of T11 appears new from 08/25/2018. Approximately 40% anterior height loss. Trace grade 1 retroli sthesis T12-L1 is unchanged. Moderate degenerative disc disease throughout. IMPRESSION: 1. Right hilar fullness may be projectional but appears increased from prior exam. Underlying right h ilar lymphadenopathy or mass should be excluded with a CT when able. 2. Increased patchy left lower lung opacity. Correlate for any potential symptoms of pneumonia. 3. Anterior compression deformity of T11 is age indeterminate but new from 08/25/2018. Correlate for focal pain at this level.
--- NOTE | 2021-02-05 12:57 | XR ---
EXAMINATION TYPE: XR lumbar spine 2 or 3V DATE OF EXAM: 02/05/2021 Comparison: None Clinical History: 86-year-old female Fall and pain Findings: Moderate endplate spondylosis and degenerative disc disease throughout. Baastrup's disease. Hypertrop hic facet arthropathy throughout. Trace grade 1 retrolisthesis at T12-L1 and L2-L3. Vertebral body he ights are preserved. Cholecystectomy clips. Impression: Moderate degenerative disc disease throughout along with hypertrophic facet arthropathy, Baastrup's d isease, and grade 1 retrolisthesis at T12-L1 and L2-L3. Thoracic spine reported separately.
[2021-02-05] MEDS ORDERED: ACET/COD 300 MG/30 MG STARTER PACK 6 TAB BTL PO STA (13:50)
[2021-02-05 14:03] VITALS: BP 190/80; PULSE 58; RESP 16
== END 2021-02-05 14:00 | disposition home or self-care (01) ==
LOC: EC 11:18
DX: M54.6 Pain in thoracic spine (principal); M54.5 Low back pain; I10 Essential (primary) hypertension; K21.9 Gastro-esophageal reflux disease without esophagitis; F03.90 Unspecified dementia, unspecified severity, without behavioral disturbance, psychotic disturbance, mood disturbance, and anxiety; Z86.73 Personal history of transient ischemic attack (TIA), and cerebral infarction without residual deficits; Z79.02 Long term (current) use of antithrombotics/antiplatelets
CPT/HCPCS: 72070; 72100; 99284

== ENCOUNTER → 2021-06-04 | Outpatient (CLI) | payer MEDICARE, OTHER ==
--- NOTE | 2021-06-05 07:19 | CT ---
EXAMINATION TYPE: CT brain wo con DATE OF EXAM: 06/04/2021 COMPARISON: 9-18 HISTORY: loss of balance, memory loss, visual changes CT DLP: [address] of the brain was performed. The ventricles, basal cisterns and sulci overlying the cerebral convexities demonstrate mild enlargem ent. Remote insult left MCA territory. There is no evidence for intracranial hemorrhage or sulcal effacement. There is decreased attenuation about the periventricular white matter and deep white matter of both c erebral hemispheres, compatible with chronic small vessel ischemia. Differential diagnosis does inclu de demyelination. No mass effects are seen.No midline shift. Osseous calvarium is intact. If symptoms persist consider MRI. IMPRESSION: 1. Age related atrophic and chronic small vessel ischemic change without acute intracranial process s een at this time.
== END | disposition home or self-care (01) ==
LOC: RADCTMAIN 15:15
PROVIDERS: ATTEND Family Medicine
DX: I67.82 Cerebral ischemia (principal)
CPT/HCPCS: 70450; 82565; 84520

== ENCOUNTER 2021-06-17 13:41 | Inpatient (IN) | payer MEDICARE, OTHER ==
[2021-06-17] MEDS ORDERED: SODIUM CHLORIDE 0.9% 1,000 ML IV STA (14:16)
[2021-06-17] MEDS ORDERED: SODIUM CHLORIDE 0.9% 500 ML 500 ML IV STA (14:16)
--- NOTE | 2021-06-17 14:21 | ED ---
Weakness HPI - General Chief complaint: Weakness Stated complaint: weakness Time Seen by Provider: 06/17/21 13:48 Source: patient, family, RN notes reviewed Mode of arrival: wheelchair Limitations: no limitations - History of Present Illness Initial comments: This is a 6-year-old female who is brought in by family with complaints of generalized weakness not feeling well she's had shortness of breath and off balance had some visual problems has some confusion she's had frequent falls recently. They have noticed a rapid decline over the past couple weeks on this patient. Patient reports of fevers chills nausea vomiting sweats no focal weakness occasional cough no sore throat no earaches no rhinorrhea no headaches she has had some urinary incontinence. No diarrhea reported. Also she does report some decreased oral intake MD Complaint: generalized weakness, difficulty walking - Related Data Home Medications Medication Instructions Recorded Confirmed Glucosam/Niranjan-Msm1/C/New/Bosw 1 tab PO DAILY 11/14/16 06/17/21 [Glucosamine-Chondroitin Tablet] Cholecalciferol [Vitamin D3] 5,000 unit PO DAILY 10/21/18 06/17/21 Ubidecarenone [Co Q-10] 200 mg PO DAILY 10/21/18 06/17/21 Memantine [Namenda] 10 mg PO BID 03/16/20 06/17/21 Metoprolol Tartrate 25 mg PO BID 03/16/20 06/17/21 Cyanocobalamin [Vitamin B-12] 500 mcg PO DAILY 06/17/21 06/17/21 Escitalopram [Lexapro] 10 mg PO DAILY 06/17/21 06/17/21 Furosemide [Lasix] 20 mg PO DAILY 06/17/21 06/17/21 Galantamine [Razadyne] 4 mg PO AC-BID 06/17/21 06/17/21 Levothyroxine Sodium [Synthroid] 25 mcg PO DAILY 06/17/21 06/17/21 Pantoprazole Sodium [Protonix] 20 mg PO BID 06/17/21 06/17/21 Vit C/E/Zn/Coppr/Lutein/Zeaxan 1 cap PO BID 06/17/21 06/17/21 [Preservision Areds 2 Softgel] Previous Rx's Medication Instructions Recorded Atorvastatin [Lipitor] 40 mg PO HS #30 tab 07/14/18 Clopidogrel [Plavix] 75 mg PO DAILY #30 tab 07/14/18 Allergies Allergy/AdvReac Type Severity Reaction Status Date / Time No Known Allergies Allergy Verified 06/17/21 16:08 Review of Systems ROS Statement: Those systems with pertinent positive or pertinent negative responses have been documented in the HPI. ROS Other: All systems not noted in ROS Statement are negative. Past Medical History Past Medical History: CVA/TIA, Dementia, GERD/Reflux, Hypertension Additional Past Medical History / Comment(s): stroke x2 occas. diff getting words out, varicose veins, anemia,. OSTEOPOROSIS. History of Any Multi-Drug Resistant Organisms: None Reported Past Surgical History: Cholecystectomy Additional Past Surgical History / Comment(s): rommel cataracts, Past Anesthesia/Blood Transfusion Reactions: No Reported Reaction Past Psychological History: No Psychological Hx Reported Smoking Status: Never smoker Past Alcohol Use History: None Reported Past Drug Use History: None Reported - Past Family History Brother(s) Family Medical History: Cancer General Exam - General Exam Comments Initial Comments: This is a well-developed sec appearing female who is awake alert oriented 3 Limitations: no limitations General appearance: alert, in no apparent distress Head exam: Present: atraumatic, normocephalic, normal inspection Eye exam: Present: normal appearance, PERRL, EOMI. Absent: scleral icterus, conjunctival injection, periorbital swelling ENT exam: Present: mucous membranes dry Neck exam: Present: normal inspection. Absent: tenderness, meningismus, lymphadenopathy Respiratory exam: Present: normal lung sounds bilaterally, rhonchi (Left Lower lobe). Absent: respiratory distress, wheezes, rales, stridor Cardiovascular Exam: Present: regular rate, normal rhythm, normal heart sounds. Absent: systolic murmur, diastolic murmur, rubs, gallop, clicks GI/Abdominal exam: Present: soft, normal bowel sounds. Absent: distended, tenderness, guarding, rebound, rigid Extremities exam: Present: normal inspection, full ROM, normal capillary refill. Absent: tenderness, pedal edema, joint swelling, calf tenderness Back exam: Present: normal inspection Neurological exam: Present: alert, oriented X3, CN II-XII intact Psychiatric exam: Present: normal affect, normal mood Skin exam: Present: warm, dry, intact, normal color. Absent: rash Course Vital Signs 06/17/21 06/17/21 13:43 16:48 Temperature 97.5 F L Pulse Rate 65 55 L Respiratory 16 18 Rate Blood Pressure 95/61 166/81 O2 Sat by Pulse 96 96 Oximetry EKG Findings - EKG Results: EKG: interpreted by YOLANDA, sinus rhythm (Sinus rhythm a 62. Interval 138 QRS duration 84 QT since QTC 466/472 moderate voltage criteria for LVH nonspecific ST-T wave configuration) Medical Decision Making - Medical Decision Making I did discuss [employer] the patient and family members. Patient will be admitted for IV antibiotics and fluids I did discuss case with Dr. Stauffer. - Lab Data Result diagrams: 06/17/21 14:41 06/17/21 14:41 Lab Results 06/17/21 06/17/21 06/17/21 Range/Units 14:41 14:41 14:41 WBC 7.8 (3.8-10.6) k/uL RBC 3.42 L (3.80-5.40) m/uL Hgb 10.2 L (11.4-16.0) gm/dL Hct 31.3 L (34.0-46.0) % MCV 91.6 (80.0-100.0) fL MCH 29.9 (25.0-35.0) pg MCHC 32.7 (31.0-37.0) g/dL RDW 13.9 (11.5-15.5) % Plt Count 135 L (150-450) k/uL MPV 8.9 Neutrophils % 80 % Lymphocytes % 9 % Monocytes % 8 % Eosinophils % 2 % Basophils % 1 % Neutrophils # 6.2 (1.3-7.7) k/uL Lymphocytes # 0.7 L (1.0-4.8) k/uL Monocytes # 0.6 (0-1.0) k/uL Eosinophils # 0.1 (0-0.7) k/uL Basophils # 0.0 (0-0.2) k/uL Sodium 138 (137-145) mmol/L Potassium 3.6 (3.5-5.1) mmol/L Chloride 103 (98-107) mmol/L Carbon Dioxide 26 (22-30) mmol/L Anion Gap 9 mmol/L BUN 43 H (7-17) mg/dL Creatinine 1.55 H (0.52-1.04) mg/dL Est GFR (CKD-EPI)AfAm 35 (>60 ml/min/1.73 sqM) Est GFR (CKD-EPI)NonAf 30 (>60 ml/min/1.73 sqM) Glucose 167 H (74-99) mg/dL Calcium 9.1 (8.4-10.2) mg/dL Magnesium 1.8 (1.6-2.3) mg/dL Total Bilirubin 0.7 (0.2-1.3) mg/dL AST 35 (14-36) U/L ALT 18 (4-34) U/L Alkaline Phosphatase 102 (38-126) U/L Creatine Kinase 60 (30-135) U/L NT-Pro-B Natriuret Pep 4450 pg/mL Total Protein 6.9 (6.3-8.2) g/dL Albumin 3.8 (3.5-5.0) g/dL Lipase 69 (23-300) U/L Urine Color Urine Appearance (Clear) Urine pH (5.0-8.0) Ur Specific [place] (1.001-1.035) Urine Protein (Negative) Urine Glucose (UA) (Negative) Urine Ketones (Negative) Urine Blood (Negative) Urine Nitrite (Negative) Urine Bilirubin (Negative) Urine Urobilinogen (<2.0) mg/dL Ur Leukocyte Esterase (Negative) 06/17/21 Range/Units 16:21 WBC (3.8-10.6) k/uL RBC (3.80-5.40) m/uL Hgb (11.4-16.0) gm/dL Hct (34.0-46.0) % MCV (80.0-100.0) fL MCH (25.0-35.0) pg MCHC (31.0-37.0) g/dL RDW (11.5-15.5) % Plt Count (150-450) k/uL MPV Neutrophils % % Lymphocytes % % Monocytes % % Eosinophils % % Basophils % % Neutrophils # (1.3-7.7) k/uL Lymphocytes # (1.0-4.8) k/uL Monocytes # (0-1.0) k/uL Eosinophils # (0-0.7) k/uL Basophils # (0-0.2) k/uL Sodium (137-145) mmol/L Potassium (3.5-5.1) mmol/L Chloride (98-107) mmol/L Carbon Dioxide (22-30) mmol/L Anion Gap mmol/L BUN (7-17) mg/dL Creatinine (0.52-1.04) mg/dL Est GFR (CKD-EPI)AfAm (>60 ml/min/1.73 sqM) Est GFR (CKD-EPI)NonAf (>60 ml/min/1.73 sqM) Glucose (74-99) mg/dL Calcium (8.4-10.2) mg/dL Magnesium (1.6-2.3) mg/dL Total Bilirubin (0.2-1.3) mg/dL AST (14-36) U/L ALT (4-34) U/L Alkaline Phosphatase (38-126) U/L Creatine Kinase (30-135) U/L NT-Pro-B Natriuret Pep pg/mL Total Protein (6.3-8.2) g/dL Albumin (3.5-5.0) g/dL Lipase (23-300) U/L Urine Color Colorless Urine Appearance Clear (Clear) Urine pH 5.5 (5.0-8.0) Ur Specific [place] 1.006 (1.001-1.035) Urine Protein Negative (Negative) Urine Glucose (UA) Negative (Negative) Urine Ketones Negative (Negative) Urine Blood Negative (Negative) Urine Nitrite Negative (Negative) Urine Bilirubin Negative (Negative) Urine Urobilinogen <2.0 (<2.0) mg/dL Ur Leukocyte Esterase Negative (Negative) - Radiology Data Radiology results: report reviewed (X-ray reviewed HIDA hernia noted have evidence of left lower lobe pneumonia CT negative for acute findings), image reviewed Disposition Clinical Impression: Left lower lobe pneumonia, Dehydration, Renal insufficiency, Failure to thrive in adult, Weakness Disposition: ADMITTED IP TO THIS [facility] Condition: Fair Referrals: Stephania Castrejon MD [Primary Care Provider] - 1-2 days
[2021-06-17 14:49] LABS: Basophils % (A) 1 %; Eosinophils # (A) 0.1 k/uL (0-0.7); Eosinophils % (A) 2 %; HCT 31.3 % (34.0-46.0); HGB 10.2 gm/dL (11.4-16.0); Lymphocytes # (A) 0.7 k/uL (1.0-4.8); Lymphocytes % (A) 9 %; MCH 29.9 pg (25.0-35.0); MCHC 32.7 g/dL (31.0-37.0); MCV 91.6 fL (80.0-100.0); Mean Platelet Volume 8.9; Monocytes # (A) 0.6 k/uL (0-1.0); Monocytes % (A) 8 %; Neutrophils # (A) 6.2 k/uL (1.3-7.7); Neutrophils % (A) 80 %; Platelet Count 135 k/uL (150-450); RBC 3.42 m/uL (3.80-5.40); RDW 13.9 % (11.5-15.5); WBC 7.8 k/uL (3.8-10.6)
--- NOTE | 2021-06-17 15:09 | XR ---
EXAMINATION TYPE: XR chest 2V DATE OF EXAM: 06/17/2021 COMPARISON: 04/25/2020 HISTORY: Weakness TECHNIQUE: 2 views FINDINGS: There is large hiatal hernia. There is flattening of the diaphragm. Heart size is normal. T here are no hilar masses. There are chest leads. IMPRESSION: COPD. Hiatal hernia. No change compared to old exam. Left lower lobe pneumonia is possibl e.
--- NOTE | 2021-06-17 15:11 | CT ---
EXAMINATION TYPE: CT brain wo con DATE OF EXAM: 06/17/2021 COMPARISON: 06/04/2021 HISTORY: Slurred speech and decreased mental status per patient family CT DLP: 1201.4 mGycm Automated exposure control for dose reduction was used. There is cerebral atrophy. There is no mass effect nor midline shift. There is no sign of intracrania l hemorrhage. There is hypodensity in the left posterior parietal lobe crews and white matter. There i s mild enlargement of the ventricles. Calvarium is intact. IMPRESSION: Cerebral atrophy. 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 No change compared to recent exam. No acute intracranial abnormality.
[2021-06-17 15:32] LABS: Albumin 3.8 g/dL (3.5-5.0); Calcium 9.1 mg/dL (8.4-10.2); Magnesium 1.8 mg/dL (1.6-2.3); Potassium 3.6 mmol/L (3.5-5.1); Total Bilirubin 0.7 mg/dL (0.2-1.3); Total Protein 6.9 g/dL (6.3-8.2)
[2021-06-17] MEDS ORDERED: cefTRIAXone IN SWFI 1,000 MG/10 ML SYRINGE IVP STA (16:11)
[2021-06-17 16:32] LABS: Appearance,Urine Clear (Clear); Bilirubin,Urine Negative (Negative); Blood,Urine Negative (Negative); Color,Urine Colorless; Glucose,Urine (UA) Negative (Negative); Ketones,Urine Negative (Negative); Leukocyte Esterase,Urine Negative (Negative); Nitrite,Urine Negative (Negative); PH, Urine 5.5 (5.0-8.0); Protein,Urine Negative (Negative); Specific Gravity,Urine 1.006 (1.001-1.035); Urobilinogen,Urine <2.0 mg/dL (<2.0)
[2021-06-17] MEDS ORDERED: AZITHROMYCIN 500 MG in SODIUM CHLORIDE 0.9% 250 ML IVPB STA (17:06)
[2021-06-17] MEDS ORDERED: PNEUMONIA PROTOCOL UTILIZED 1 EACH MISC PO PRN (17:06)
[2021-06-17] MEDS: SODIUM CHLORIDE 0.9% 1,000 ML IV SCH (17:17)
[2021-06-17] MEDS: METOPROLOL TARTRATE 25 MG TAB PO SCH (20:33)
[2021-06-17] MEDS: VIT A,C & E-LUTEIN-MINERALS 1 EACH TAB PO SCH (20:33)
[2021-06-17] MEDS: ATORVASTATIN 40 MG TAB PO SCH (20:33)
[2021-06-17] MEDS: MEMANTINE 10 MG TAB PO SCH (20:33)
[2021-06-18] MEDS: SODIUM CHLORIDE 0.9% 1,000 ML IV SCH ×3 (03:41→20:58)
[2021-06-18] MEDS: LEVOTHYROXINE 25 MCG TAB PO SCH (06:02)
--- NOTE | 2021-06-18 07:57 | XR ---
EXAMINATION TYPE: XR chest 2V DATE OF EXAM: 06/18/2021 COMPARISON: 06/17/2021 INDICATION: Pneumonia TECHNIQUE: Frontal and lateral views of the chest are obtained. FINDINGS: The heart size is normal. The pulmonary vasculature is prominent. There is a left lower lobe infiltrate. Small left pleural effusion may be present. Some scattered inf iltrate is present bilaterally which is nonspecific. IMPRESSION: 1. Left lower lobe infiltrate. Correlate for atelectasis and pneumonia. 2. Prominent vascular markings and mild increased lung markings. Correlate for volume overload.
[2021-06-18] MEDS: METOPROLOL TARTRATE 25 MG TAB PO SCH ×2 (08:02→20:57)
[2021-06-18] MEDS: MEMANTINE 10 MG TAB PO SCH ×2 (08:02→20:57)
[2021-06-18] MEDS: PANTOPRAZOLE 40 MG TABLET PO SCH (08:02)
[2021-06-18] MEDS: DONEPEZIL 5 MG TAB PO SCH (08:03)
[2021-06-18] MEDS: ESCITALOPRAM 10 MG TAB PO SCH (08:03)
[2021-06-18] MEDS: VIT A,C & E-LUTEIN-MINERALS 1 EACH TAB PO SCH ×2 (08:03→20:57)
[2021-06-18] MEDS: CLOPIDOGREL 75 MG TAB PO SCH (08:03)
[2021-06-18] MEDS: CHOLECALCIFEROL 25 MCG (1000 IU) TABLET PO SCH (08:03)
[2021-06-18] MEDS: CYANOCOBALAMIN 500 MCG TAB PO SCH (08:03)
[2021-06-18] MEDS: FUROSEMIDE 20 MG TAB PO SCH (08:03)
[2021-06-18] MEDS ORDERED: NON FORMULARY DRUG (Glucosam/Chon-Msm1/C/Mang/Bosw [Glucosamine-Chondroitin Tablet] 1 EACH PO SCH (09:00)
[2021-06-18] MEDS ORDERED: NON FORMULARY DRUG (Ubidecarenone [Co Q-10] 100 MG Capsule) PO SCH (09:00)
--- NOTE | 2021-06-18 14:24 | P.HPIM ---
History of Present Illness H&P Date: 06/18/21 HISTORY OF PRESENT ILLNESS This is an 86-year-old female patient of Dr. Castrejon with past medical history of hypertension, memory loss, CVA many years ago, hypothyroidism, gastroesophageal reflux disease, osteoporosis. When asked why the patient is here, she says I don't know but I'm ready to go home. She states that yesterday she was feeling a little dizzy and couldn't express herself. She states that she has stroke years ago but no other symptoms recently. She denies any cough, no fever or chills. She states she does have memory problems and is currently living alone. Her son takes her shopping and her son stop been every day. Family has been concerned about weight loss. Patient states that she has had a couple falls. Family was concerned of generalized weakness not feeling well and shortness of breath, balance off as well. Patient apparently has had some decline over the past couple weeks. Patient came in to [facility] emergency center for evaluation. She was found to be afebrile, heart rate 50s and 60s, blood pressure initially 95/61 and repeat 166/81. Pulse ox 96% on room air. EKG was a sinus rhythm with LVH and nonspecific ST-T wave changes. WBC 7.8, hemoglobin 10.2 and platelet count 135 electrolytes were normal, BUN 43 creatinine 1.55, blood sugar 167. ProBNP 4450. Liver function tests were normal. Lipase 69. Urinalysis was clear and negative for infection. Chest x-ray reveals COPD, hiatal hernia. No change compared to old exam. Left lower lobe pneumonia is possible. Repeat chest x-ray this morning reveals left lower lobe infiltrate correlate for atelectasis and pneumonia. Prominent vascular markings and mild increased lung markings correlate for volume overload. CAT scan of the brain revealed cerebral atrophy. 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 No change. No acute intracranial abnormality. Patient admitted to the [facility] floor and started on IV antibiotics. REVIEW OF SYSTEMS Constitutional: No fever, no chills, no night sweats. Reports weight change. Reports weakness, Reports fatigue no lethargy. No daytime sleepiness. EENT: No headache. No blurred vision or double vision, no loss of vision. No loss of Hearing, no ringing in the ears, no dizziness. No nasal drainage or congestion. No epistaxis. No sore throat. Lungs: Reports shortness of breath, cough, no sputum production. No wheezing. Cardiovascular: No chest pain, no lower extremity edema. No palpitations. No paroxysmal nocturnal dyspnea. No orthopnea. No lightheadedness or dizziness. No syncopal episodes. Abdominal: No abdominal pain. No nausea, vomiting. No diarrhea. No constipation. No bloody or tarry stools.. No loss of appetite. Genitourinary: No dysuria, increased frequency, urgency. No urinary retention. Musculoskeletal: No myalgias. Reports muscle weakness, Reports gait dysfunction, Reports frequent falls. No back pain. No neck pain. Integumentary: No wounds, no lesions. No rash or pruritus. No unusual bruising. No change in hair or nails. Neurologic: No aphasia. No facial droop. No change in mentation. No head injury. No headache. No paralysis. No paresthesia. Psychiatric: No depression. No anxiety. No mood swings. Endocrine: Noted abnormal blood sugars. No weight change. No excessive sweating or thirst. No cold intolerance. SOCIAL HISTORY Patient is a lifelong nonsmoker, no [place] monitored, alcohol or illicit drug use. 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 She is 77 years ago. She lives alone but her sons check in on her daily. Her son takes her shopping and does all her driving. FAMILY HISTORY Mother in her 30s of unknown cause. Father in his 80s from old age. Patient has 8 siblings and one has passed but she does not remember the cause. Patient has 4 sons with no major medical problems. She has no daughters. PHYSICAL EXAMINATION Gen: This is an 86-year-old female. Patient is resting in bed and appears to be comfortable and in no acute distress. HEENT: Head is atraumatic, normocephalic. Pupils equal, round. Sclerae is anicteric. NECK: Supple. No JVD. No lymphadenopathy. No thyromegaly. LUNGS: Clear to auscultation. No wheezes or rhonchi. No intercostal retractions. HEART: Regular rate and rhythm. No murmur. ABDOMEN: Soft. Bowel sounds are present. No masses. No tenderness. EXTREMITIES: No pedal edema. No calf tenderness. NEUROLOGICAL: Patient is awake, alert and oriented to person and place, short- term memory deficit noted. Cranial nerves 2 through 12 are grossly intact. Mild generalized weakness. ASSESSMENT AND PLAN 1. Left lower lobe pneumonia. [facility] and started on ceftriaxone and azithromycin. Blood culture is in progress. 2. Generalized weakness is worsening over time, weight loss and generalized debility. Consult with PT and OT, social work for possible subacute rehab. 3. History of CVA. Continue Plavix 75 mg daily, Lipitor 40 mg at bedtime. 4. Hypertension. Continue Lopressor 25 mg twice daily, Lasix 20 mg daily. 5. 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 Continue Namenda 10 mg twice daily, Galantamine 4 mg twice daily, vitamin B12. 6. Hypothyroidism. Check TSH and free T4, continue levothyroxine 25 g daily. 7. Gastroesophageal reflux disease. Continue Protonix 40 mg daily. 8. Moderate protein calorie malnutrition with weight loss and BMI of 19.5. Protein supplement. 9. Elevated blood sugar. Obtain hemoglobin A1c. 10. Bicytopenia with anemia and thrombocytopenia possibly related to poor diet. Continue to monitor. 11. Chronic kidney disease stage III. 12. DVT prophylaxis. Heparin subcu. Patient will be admitted to the hospital for a minimum of 2 night stay. DISCHARGE PLAN Subacute rehab. PT and OT consults. Impression and plan of care have been directed as dictated by the signing physician. Amisha Alcantar nurse practitioner acting as scribe for signing physician. Past Medical History Past Medical History: CVA/TIA, Dementia, Hypertension Additional Past Medical History / Comment(s): stroke x2 occas. diff getting words out, varicose veins, anemia,. OSTEOPOROSIS. History of Any Multi-Drug Resistant Organisms: None Reported Past Surgical History: Cholecystectomy Additional Past Surgical History / Comment(s): rommel cataracts, Past Anesthesia/Blood Transfusion Reactions: No Reported Reaction Past Psychological History: No Psychological Hx Reported Smoking Status: Never smoker Past Alcohol Use History: None Reported Past Drug Use History: None Reported - Past Family History Brother(s) Family Medical History: Cancer Medications and Allergies Home Medications Medication Instructions Recorded Confirmed Type Glucosam/Niranjan-Msm1/C/New/Bosw 1 tab PO DAILY 11/14/16 06/17/21 History [Glucosamine-Chondroitin Tablet] Atorvastatin [Lipitor] 40 mg PO HS #30 tab 07/14/18 06/17/21 Rx Clopidogrel [Plavix] 75 mg PO DAILY #30 tab 07/14/18 06/17/21 Rx Cholecalciferol [Vitamin D3] 5,000 unit PO DAILY 10/21/18 06/17/21 History Ubidecarenone [Co Q-10] 200 mg PO DAILY 10/21/18 06/17/21 History Memantine [Namenda] 10 mg PO BID 03/16/20 06/17/21 History Metoprolol Tartrate 25 mg PO BID 03/16/20 06/17/21 History Cyanocobalamin [Vitamin B-12] 500 mcg PO DAILY 06/17/21 06/17/21 History Escitalopram [Lexapro] 10 mg PO DAILY 06/17/21 06/17/21 History Furosemide [Lasix] 20 mg PO DAILY 06/17/21 06/17/21 History Galantamine [Razadyne] 4 mg PO AC-BID 06/17/21 06/17/21 History Levothyroxine Sodium [Synthroid] 25 mcg PO DAILY 06/17/21 06/17/21 History Pantoprazole Sodium [Protonix] 20 mg PO BID 06/17/21 06/17/21 History Vit C/E/Zn/Coppr/Lutein/Zeaxan 1 cap PO BID 06/17/21 06/17/21 History [Preservision Areds 2 Softgel] Allergies Allergy/AdvReac Type Severity Reaction Status Date / Time No Known Allergies Allergy Verified 06/17/21 16:08 Physical Exam Vitals: Vital Signs Temp Pulse Pulse Resp BP BP Pulse Ox 06/18/21 08:02 16 06/18/21 07:54 97.7 F 58 L 18 146/72 95 06/18/21 02:45 98.0 F 52 L 16 155/66 94 L 06/17/21 20:00 98.2 F 95 16 135/66 95 06/17/21 18:00 97.9 F 61 18 176/93 99 06/17/21 16:48 55 L 18 166/81 96 06/17/21 13:43 97.5 F L 65 16 95/61 96 Intake and Output 06/17/21 06/18/21 06/18/21 22:59 06:59 14:59 Other: # Voids 2 Weight 45.359 kg Results CBC & Chem 7: 06/17/21 14:41 06/17/21 14:41 Labs: Abnormal Lab Results - Last 24 Hours (Table) 06/17/21 06/17/21 Range/Units 14:41 14:41 RBC 3.42 L (3.80-5.40) m/uL Hgb 10.2 L (11.4-16.0) gm/dL Hct 31.3 L (34.0-46.0) % Plt Count 135 L (150-450) k/uL Lymphocytes # 0.7 L (1.0-4.8) k/uL BUN 43 H (7-17) mg/dL Creatinine 1.55 H (0.52-1.04) mg/dL Glucose 167 H (74-99) mg/dL Thrombosis Risk Factor Assmnt - Choose All That Apply Any of the Below Risk Factors Present?: Yes Each Factor Represents 1 point: Age 41-60 years Each Risk Factor Represents 2 Points: Age 61-74 years Each Risk Factor Represents 3 Points: Age 75 years or older Thrombosis Risk Factor Assessment Total Risk Factor Score: 6 Thrombosis Risk Factor Assessment Level: High Risk
[2021-06-18 15:21] VITALS: BMI 19.5
[2021-06-18] MEDS ORDERED: AZITHROMYCIN 500 MG TAB PO SCH (18:00)
[2021-06-18] MEDS: ATORVASTATIN 40 MG TAB PO SCH (20:57)
[2021-06-18] MEDS: HEPARIN SODIUM,PORCINE/PF 5,000 UNIT/0.5 ML SYRINGE SQ SCH (20:57)
[2021-06-18 23:31] LABS: Hemoglobin A1C 5.4 % (4.0-6.0)
[2021-06-19] MEDS: LEVOTHYROXINE 25 MCG TAB PO SCH (05:53)
[2021-06-19 08:04] VITALS: RESP 16
[2021-06-19] MEDS: DONEPEZIL 5 MG TAB PO SCH (08:26)
[2021-06-19] MEDS: MEMANTINE 10 MG TAB PO SCH (08:26)
[2021-06-19] MEDS: FUROSEMIDE 20 MG TAB PO SCH (08:26)
[2021-06-19] MEDS: PANTOPRAZOLE 40 MG TABLET PO SCH (08:26)
[2021-06-19] MEDS: HEPARIN SODIUM,PORCINE/PF 5,000 UNIT/0.5 ML SYRINGE SQ SCH (08:26)
[2021-06-19] MEDS: CHOLECALCIFEROL 25 MCG (1000 IU) TABLET PO SCH (08:26)
[2021-06-19] MEDS: CLOPIDOGREL 75 MG TAB PO SCH (08:26)
[2021-06-19] MEDS: ESCITALOPRAM 10 MG TAB PO SCH (08:26)
[2021-06-19] MEDS: CYANOCOBALAMIN 500 MCG TAB PO SCH (08:26)
[2021-06-19] MEDS: METOPROLOL TARTRATE 25 MG TAB PO SCH (08:27)
[2021-06-19] MEDS: VIT A,C & E-LUTEIN-MINERALS 1 EACH TAB PO SCH (08:27)
[2021-06-19] MEDS: SODIUM CHLORIDE 0.9% 1,000 ML IV SCH (08:27)
--- NOTE | 2021-06-19 10:18 | P.DS ---
Providers Date of admission: 06/17/21 17:06 Expected date of discharge: 06/19/21 Attending physician: Rafy Stauffer Primary care physician: Stephania Castrejon [facility] Course: HISTORY OF PRESENT ILLNESS This is an 86-year-old female patient of Dr. Castrejon with past medical history of hypertension, memory loss, CVA many years ago, hypothyroidism, gastroesophageal reflux disease, osteoporosis. When asked why the patient is here, she says I don't know but I'm ready to go home. She states that yesterday she was feeling a little dizzy and couldn't express herself. She states that she has stroke years ago but no other symptoms recently. She denies any cough, no fever or chills. She states she does have memory problems and is currently living alone. Her son takes her shopping and her son stop been every day. Family has been concerned about weight loss. Patient states that she has had a couple falls. Family was concerned of generalized weakness not feeling well and shortness of breath, balance off as well. Patient apparently has had some decline over the past couple weeks. Patient came in to [facility] emergency center for evaluation. She was found to be afebrile, heart rate 50s and 60s, blood pressure initially 95/61 and repeat 166/81. Pulse ox 96% on room air. EKG was a sinus rhythm with LVH and nonspecific ST-T wave changes. WBC 7.8, hemoglobin 10.2 and platelet count 135 electrolytes were normal, BUN 43 creatinine 1.55, blood sugar 167. ProBNP 4450. Liver function tests were normal. Lipase 69. Urinalysis was clear and negative for infection. Chest x-ray reveals COPD, hiatal hernia. No change compared to old exam. Left lower lobe pneumonia is possible. Repeat chest x-ray this morning reveals left lower lobe infiltrate correlate for atelectasis and pneumonia. Prominent vascular markings and mild increased lung markings correlate for volume overload. CAT scan of the brain revealed cerebral atrophy. 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 No change. No acute intracranial abnormality. Patient admitted to the [facility] floor and started on IV antibiotics. 06/19: She denies having any complaints. She denies shortness of breath or cough. No fever or chills. No nausea vomiting. She states she couldn't get out of bed and walk without a problem. Discharge planning is for [facility] per her family's request. PT and OT are following. Patient has been afebrile, heart rate 61, blood pressure 157/62, pulse ox 97% on room air. Repeat blood work reveals WBC 5.5, hemoglobin 9.6, platelet count 141. Sodium 141, potassium 3.3, chloride 106, CO2 27, BUN 27 creatinine 1.14. Blood sugar 131. Potassium replaced. Patient will be discharged to [facility] today in stable condition. ASSESSMENT AND PLAN 1. Left lower lobe pneumonia. 2. Generalized weakness is worsening over time, weight loss and generalized debility. 3. History of CVA. 4. Hypertension. 5. 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 6. Hypothyroidism. 7. Gastroesophageal reflux disease. 8. Moderate protein calorie malnutrition with weight loss and BMI of 19.5. 9. Elevated blood sugar. 10. Bicytopenia with anemia and thrombocytopenia possibly related to poor diet. 11. Acute kidney injury, Chronic kidney disease stage III. DISCHARGE PLAN Subacute rehab at [facility] Impression and plan of care have been directed as dictated by the signing physician. Amisha Alcantar nurse practitioner acting as scribe for signing physician. Patient Condition at Discharge: Good Plan - Discharge Summary Discharge Rx Participant: No New Discharge Prescriptions: New Azithromycin [Zithromax] 500 mg PO DAILY@1800 #7 tab Continue Glucosam/Niranjan-Msm1/C/New/Bosw [Glucosamine-Chondroitin Tablet] 1 tab PO DAILY Atorvastatin [Lipitor] 40 mg PO HS #30 tab Clopidogrel [Plavix] 75 mg PO DAILY #30 tab Cholecalciferol [Vitamin D3 (25 Mcg = 1000 Iu)] 5,000 unit PO DAILY Ubidecarenone [Co Q-10] 200 mg PO DAILY Memantine [Namenda] 10 mg PO BID Metoprolol Tartrate 25 mg PO BID Galantamine [Razadyne] 4 mg PO AC-BID Cyanocobalamin [Vitamin B-12] 500 mcg PO DAILY Pantoprazole Sodium [Protonix] 20 mg PO BID Levothyroxine Sodium [Synthroid] 25 mcg PO DAILY Furosemide [Lasix] 20 mg PO DAILY Escitalopram [Lexapro] 10 mg PO DAILY Vit C/E/Zn/Coppr/Lutein/Zeaxan [Preservision Areds 2 Softgel] 1 cap PO BID Discharge Medication List Glucosam/Niranjan-Msm1/C/New/Bosw [Glucosamine-Chondroitin Tablet] 1 tab PO DAILY 11/14/16 [History] Atorvastatin [Lipitor] 40 mg PO HS #30 tab 07/14/18 [Rx] Clopidogrel [Plavix] 75 mg PO DAILY #30 tab 07/14/18 [Rx] Cholecalciferol [Vitamin D3 (25 Mcg = 1000 Iu)] 5,000 unit PO DAILY 10/21/18 [History] Ubidecarenone [Co Q-10] 200 mg PO DAILY 10/21/18 [History] Memantine [Namenda] 10 mg PO BID 03/16/20 [History] Metoprolol Tartrate 25 mg PO BID 03/16/20 [History] Cyanocobalamin [Vitamin B-12] 500 mcg PO DAILY 06/17/21 [History] Escitalopram [Lexapro] 10 mg PO DAILY 06/17/21 [History] Furosemide [Lasix] 20 mg PO DAILY 06/17/21 [History] Galantamine [Razadyne] 4 mg PO AC-BID 06/17/21 [History] Levothyroxine Sodium [Synthroid] 25 mcg PO DAILY 06/17/21 [History] Pantoprazole Sodium [Protonix] 20 mg PO BID 06/17/21 [History] Vit C/E/Zn/Coppr/Lutein/Zeaxan [Preservision Areds 2 Softgel] 1 cap PO BID 06/17/21 [History] Azithromycin [Zithromax] 500 mg PO DAILY@1800 #7 tab 06/19/21 [Rx] Follow up Appointment(s)/Referral(s): Stephania Castrejon MD [Primary Care Provider] - 1 Week (at [facility]) Discharge Disposition: TRANSFER TO SNF/ECF
[2021-06-19 12:20] LABS: HCT 29.4 % (34.0-46.0); HGB 9.6 gm/dL (11.4-16.0); MCH 30.5 pg (25.0-35.0); MCHC 32.8 g/dL (31.0-37.0); Mean Platelet Volume 7.7; Platelet Count 141 k/uL (150-450); RBC 3.16 m/uL (3.80-5.40); RDW 14.3 % (11.5-15.5); WBC 5.5 k/uL (3.8-10.6)
[2021-06-19 12:59] LABS: African American GFR (CKD) 50 (>60 ml/min/1.73 sqM); Anion Gap 7 mmol/L; Blood Urea Nitrogen 27 mg/dL (7-17); Calcium 8.7 mg/dL (8.4-10.2); Carbon Dioxide 27 mmol/L (22-30); Chloride 107 mmol/L (98-107); Glucose 131 mg/dL (74-99); Non-African American GFR(CKD) 44 (>60 ml/min/1.73 sqM); Potassium 3.3 mmol/L (3.5-5.1); Sodium 141 mmol/L (137-145)
[2021-06-19] MEDS ORDERED: POTASSIUM CHLORIDE ER 20 MEQ TAB.ER PO STA (14:40)
[2021-06-19 14:54] VITALS: BP 158/73; PULSE 59; TEMP 97.5
== END 2021-06-19 15:40 | DRG 194 ==
LOC: EC 13:41 → 4SSUR 17:06
PROVIDERS: ADMIT Internal Medicine Geriatric Medicine; ATTEND Internal Medicine Geriatric Medicine
DX: J18.9 Pneumonia, unspecified organism (principal); Z68.1 Body mass index [BMI] 19.9 or less, adult; N17.9 Acute kidney failure, unspecified; E44.0 Moderate protein-calorie malnutrition; J44.0 Chronic obstructive pulmonary disease with (acute) lower respiratory infection; Z86.73 Personal history of transient ischemic attack (TIA), and cerebral infarction without residual deficits; Z79.899 Other long term (current) drug therapy; Z79.890 Hormone replacement therapy; Z79.02 Long term (current) use of antithrombotics/antiplatelets; K21.9 Gastro-esophageal reflux disease without esophagitis; I12.9 Hypertensive chronic kidney disease with stage 1 through stage 4 chronic kidney disease, or unspecified chronic kidney disease; N18.30 Chronic kidney disease, stage 3 unspecified; M81.0 Age-related osteoporosis without current pathological fracture; K44.9 Diaphragmatic hernia without obstruction or gangrene; R62.7 Adult failure to thrive; F01.50 Vascular dementia, unspecified severity, without behavioral disturbance, psychotic disturbance, mood disturbance, and anxiety; E86.0 Dehydration; E03.9 Hypothyroidism, unspecified; D69.6 Thrombocytopenia, unspecified; D64.9 Anemia, unspecified
CPT/HCPCS: 36415; 70450; 71046; 80048; 80053; 81003; 82550; 83036; 83690; 83735; 83880; 84443; 85025; 85027; 87040; 93005; 96361; 96374; 99285

== ENCOUNTER → 2022-11-29 | Outpatient (CLI) | payer MEDICARE, OTHER ==
--- NOTE | 2022-11-29 13:48 | CT ---
EXAMINATION: CT ABDOMEN AND PELVIS WITHOUT IV CONTRAST DATE OF EXAMINATION: 11/29/2022. COMPARISON: None available. INDICATION: GI bleeding. PROCEDURE: Axial CT of the abdomen and pelvis was performed with sagittal and coronal reformatted i mages without contrast enhancement. The exam is limited because some types of pathology may not be ad equately demonstrated due to lack of contrast enhancement. CT dose lowering techniques were used, to include: automated exposure control, adjustment for patient size, and/or use of iterative reconstruct ion. FINDINGS: LOWER CHEST : There are small bilateral pleural effusions. There is some scattered interstitial mendoza ges seen throughout the lung bases bilaterally which is rather diffuse and may be chronic changes. A component of edema would not be excluded. There is mild cardiomegaly and mild patchy partially visual ized coronary artery calcifications. ABDOMEN: Liver and Biliary system: Normal. Adrenal glands: Normal. Kidneys and ureters: Some mild hyperdensity renal appearance bilaterally which may relate to medulla ry nephrocalcinosis. No well-defined renal stones, ureteral stones or hydronephrosis is seen. Spleen: Normal. Pancreas: Normal. Gallbladder: Surgically absent. Lymph nodes, Peritoneum and mesentery: There is no mesenteric or retroperitoneal lymphadenopathy. Gastrointestinal tract: There are no dilated loops of bowel or free intraperitoneal air. . The appe ndix is not clearly seen with no secondary changes of appendicitis otherwise identified. There is sca ttered colonic diverticulosis with moderate to significant diverticulosis involving the sigmoid colon . No evidence of diverticulitis is seen. Evaluation for active GI bleeding is limited in a study with out contrast. There is a large hiatal hernia which contains almost the entire stomach, intra-abdomina l fat as well as a portion of the pancreas. Aorta/IVC: There is severe vascular calcification throughout the abdominal aorta without evidence o f aneurysmal dilation. IVC normal. Abdominal wall: Normal. PELVIS: Fluid: There is no free fluid in the pelvis. Lymph Nodes: There is no pelvic or inguinal lymphadenopathy.. Urinary bladder: Normal. BONES: Scattered degenerative disc and facet changes are seen throughout the spine. There is a sever e compression deformity is wedge-shaped involving the T11 vertebral body a kyphotic deformity at that level. No aggressive osseous lesions are otherwise seen. ADDITIONAL SIGNIFICANT FINDINGS: None. IMPRESSION: 1. Diverticulosis without evidence of diverticulitis. 2. No bowel obstruction or acute inflammatory process otherwise seen within the abdomen or pelvis. 3. Limited evaluation for active GI bleeding without contrast. 4. Large hiatal hernia screening the majority of the stomach, fat and a portion of the pancreas. 5. Small bilateral pleural effusions with likely chronic basilar lung changes and possibly a componen t of mild edema. 6. Bony changes as above. 7. Coronary artery calcifications.
== END | disposition home or self-care (01) ==
LOC: RADCTMAIN 10:46
PROVIDERS: ATTEND Family Medicine
DX: K57.30 Diverticulosis of large intestine without perforation or abscess without bleeding (principal); K44.9 Diaphragmatic hernia without obstruction or gangrene; J90 Pleural effusion, not elsewhere classified; I25.10 Atherosclerotic heart disease of native coronary artery without angina pectoris
CPT/HCPCS: 74176